=== PATIENT | male | born 1940 | race Caucasian/White ===

== ENCOUNTER 2022-11-02 07:45 | Outpatient (RCR) | payer MEDICARE, BC, SELFPAY | END 2023-01-25 14:43 | disposition home or self-care (01) | PROVIDERS: PCP Family Medicine; Visit Provider Family Medicine | DX: R26.81 Unsteadiness on feet (principal); Z51.89 Encounter for other specified aftercare | CPT/HCPCS: 97110; 97162 ==

== ENCOUNTER 2022-12-01 12:48 | Inpatient (IN) | payer MEDICARE, BC, SELFPAY ==
[2022-12-01] VITALS (11 sets, daily range): BP systolic 115–143; BP diastolic 66–86; PULSE 68–96; RESP 12–18; TEMP 36.4–37; O2SAT 95–100; BMI 21.6; BMI 22.6
--- NOTE | 2022-12-01 13:59 | CRLHL7_ITS ---
For Patients: As a result of the Century Cures Act, medical imaging exams and procedure reports are released immediately into your electronic medical record. You may view this report before your referring provider. If you have questions, please contact your health care provider. Indication: Fall, weakness Comparison: None available. Technique: Multiple sequential axial images from the foramen magnum to the vertex were obtained without IV contrast. Findings: No definite skull fracture. No evidence of mass effect, midline shift, or extra-axial fluid collection. No evidence of space-occupying lesion or intracranial hemorrhage. No evidence of an acute appearing cortical-based area of infarction. Ventricles and sulci are appropriate for patient age. Basal cisterns are patent. Visualized portions of the orbits, paranasal sinuses, and mastoid air cells are unremarkable. Impression: No acute intracranial process. Please note that all CT scans at this facility use dose modulation, iterative reconstruction, and/or weight-based dosing when appropriate to reduce radiation dose to as low as reasonably achievable. Dictated by Demetris Casas MD @ 12/01/2022 2:39:37 PM (Electronically Signed)
--- NOTE | 2022-12-01 14:04 | ED.GENADULT ---
HPI - General Adult General Chief complaint: Weakness Stated complaint: Illness Time Seen by Provider: 12/01/22 12:52 History of Present Illness HPI narrative: This 82-year-old male comes in for evaluation after being found down at home. A good friend and his . By this morning and saw that he was on the floor. He did not have any clothes on. They were able to the help him up and get him dressed. He did have some food and then was brought here for evaluation. The patient lives alone at home and states that things have been going well for him. He does recognize that he has some early stages of dementia. 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. The patient does have some abrasions on his left shoulder and elbow. He also has matting in his left eye. He arrives with normal vital signs but is noted to have an irregular rhythm. EKG does show atrial fibrillation which is new onset for him. There are no specific ST changes. He does not report any chest pain. His rate is controlled. His son has power of director of analytics and lives in [place]. Related Data Home Medications Medication Instructions Recorded Confirmed metformin 500 mg tablet,extended 2,000 mg PO DAILY 12/01/22 12/01/22 release 24 hr sertraline 50 mg tablet 50 mg PO DAILY 12/01/22 12/01/22 trazodone 50 mg tablet 25 mg PO HS 12/01/22 12/01/22 Allergies Allergy/AdvReac Type Severity Reaction Status Date / Time No Known Drug Allergies Allergy Verified 12/01/22 13:05 Review of Systems Status of ROS: Reports: 10 or more systems reviewed and unremarkable except as noted in History and below Narrative: Constitutional: No fevers, no weight gain or loss. Eyes: No discharge. No vision changes. HENT: No congestion, no sore throat, no ear pain. Cardiovascular: No chest pain, no palpitations. Respiratory: No shortness of breath, no wheezes, no cough. Gastrointestinal: No abdominal pain, no vomiting, no diarrhea. Genitourinary: No dysuria, no hematuria. Musculoskeletal: Normal range of motion. Skin: No rashes, no pruritis. Neurological: No dizziness, weakness, sensory change, speech change. Endo/Heme/Allergies: No bruising or bleeding. No polydipsia. Pysch: no suicidality, no anxiety, no insomnia. All other systems reviewed and are negative. Exam Narrative: Exam Narrative: Constitutional: Well-developed, well-nourished, no acute distress. HEENT: Normocephalic, atraumatic. Matting in purulence from the left eye. Neck: Normal range of motion. Nontender. Supple. Heart: Irregular. No murmurs. Normal rate. Intact distal pulses. Lungs: Clear to auscultation. No chest discomfort. No wheezes, rhonchi, or rales. Abdomen: Normal bowel sounds. Nontender. No rebound tenderness. Genitalia: Deferred. Back: No midline tenderness. Normal range of motion. Extremities: Normal range of motion. Erythema on the left shoulder and elbow. There is an abrasion also on the left elbow. Skin: Intact. No rash. Warm. No erythema or pallor. Neurologic: No altered sensation. No weakness. Alert. Psychiatric: No suicidality. No anxiety or depression. No insomnia. Nursing notes and vitals signs are reviewed. Const: Vital Signs, click to edit/add: Vital Signs - 24 hr 12/01/22 13:05 Temperature 97.5 F L Pulse Rate [Right Pulse Oximeter] 73 Respiratory Rate 16 Blood Pressure [Ri ght Upper Arm] 143/86 H Pulse Oximetry 97 Oxygen Delivery Me thod Room Air Course Vital Signs Vital signs: Initial Vital Signs Temperature 97.5 F L 12/01/22 13:05 Temperature Source Temporal Artery Scan 12/01/22 13:05 Pulse Rate 73 12/01/22 13:05 Pulse Rhythm Regular 12/01/22 13:05 Respiratory Rate 16 12/01/22 13:05 Blood Pressure 143/86 H 12/01/22 13:05 Blood Pressure Mean 105 12/01/22 13:05 Blood Pressure Position Sitting 12/01/22 13:05 Pulse Oximetry 97 12/01/22 13:05 Oxygen Delivery Method Room Air 12/01/22 13:05 Vital Signs Temperature 97.5 F L 12/01/22 13:05 Pulse Rate 73 12/01/22 13:05 Respiratory Rate 16 12/01/22 13:05 Blood Pressure 143/86 H 12/01/22 13:05 Pulse Oximetry 97 12/01/22 13:05 Oxygen Delivery Method Room Air 12/01/22 13:05 Temperature 97.5 F L 12/01/22 13:05 Pulse Rate 73 12/01/22 13:05 Respiratory Rate 16 12/01/22 13:05 Blood Pressure 143/86 H 12/01/22 13:05 Pulse Oximetry 97 12/01/22 13:05 Oxygen Delivery Method Room Air 12/01/22 13:05 Medical Decision Making MDM Narrative Medical decision making narrative: This patient comes in for evaluation after being down for an unknown amount of time. His good friend stop by to check on him and noted that he was unclothed and apparently had been down for unknown amount of time. His last time that he was seen was last evening. The patient does not have any complaints. A CT scan of his head returns without any acute findings. Lab results do show a sodium that is a bit low at 126. His creatine kinase is markedly elevated at around 9000. I did speak with the hospitalist network control technician who agrees to his admission Lab Data Labs: Lab Results 12/01/22 12/01/22 Range/Units 14:10 14:30 WBC 8.46 (4.50-11.00) K/uL RBC 3.93 L (4.30-5.90) m/uL Hgb 13.4 L (13.5-17.5) gm/dL Hct 37.2 (37.0-53.0) % MCV 95 (80-100) fL MCH 34 (26-34) pg MCHC 36 (32-36) gm/dL RDW Coeff of Patricia 12.3 (11.5-15.5) % Plt Count 203 (140-440) K/uL Neut % (Auto) 88.1 H (42.0-72.0) % Lymph % (Auto) 5.3 L (20-44) % [place] % (Auto) 6.3 (0.0-11.0) % Eos % (Auto) 0.0 (0.0-7.0) % Baso % (Auto) 0.1 (0.0-3.0) % Neut # (Auto) 7.50 H (1.7-7.0) K/uL Lymph # (Auto) 0.40 L (0.90-2.90) K/uL [place] # (Auto) 0.50 (0.00-0.90) K/UL Eos # (Auto) 0.00 (0.00-0.50) K/uL Baso # (Auto) 0.01 (0.00-0.30) K/uL Sodium 126 L (135-149) mmol/L Potassium 3.8 (3.6-5.1) mmol/L Chloride 92 L (96-114) mmol/L Carbon Dioxide 28 (20-32) mmol/L BUN 25 (7-30) mg/dL Creatinine 0.7 (0.5-1.5) mg/dL Estimated Creat Clear 47.50 Estimated GFR 92 ml/min Glucose 163 H (60-115) mg/dL Calcium 8.8 (8.4-10.6) mg/dL Total Bilirubin 1.4 (0.1-1.5) mg/dL Direct Bilirubin 0.0 (0.0-0.5) mg/dL AST 181 H (12-35) U/L ALT 65 H (4-50) U/L Alkaline Phosphatase 51 (40-150) U/L Total Creatine Kinase 9036 H (54-186) U/L Total Protein 6.3 (6.0-8.3) g/dL Albumin 3.9 (3.3-5.0) g/dL SARS-CoV-2 (PCR) Negative SARS-CoV-2 (Negative) POC Troponin I 0.02 (0.01-0.04) ng/ml Imaging Data CT scan - head: Radiologist's impression: No acute intracranial process. ECG Data Attestation: I personally reviewed and interpreted this ECG as follows: Interpretation: Atrial fibrillation. Rate is 72 beats per minute. There are no specific ST or T-wave abnormalities. Discharge Plan Discharge Clinical Impression: Conjunctivitis, Rhabdomyolysis, Acute hyponatremia Patient Disposition: Admitted As Inpatient Condition: Unchanged Prescriptions: No Action trazodone 50 mg tablet 25 mg PO HS metformin 500 mg tablet extended release 24 hr 2,000 mg PO DAILY sertraline 50 mg tablet 50 mg PO DAILY Follow Up/Referrals: Jairo Richardson MD [Primary Care Provider] -
[2022-12-01 14:23] LABS: Basophils Absolute Auto 0.01 K/uL (0.00-0.30); Basophils Percent Auto 0.1 % (0.0-3.0); Hematocrit 37.2 % (37.0-53.0); Hemoglobin* 13.4 gm/dL (13.5-17.5); Immature Granulocytes Abs Auto 0.02 K/uL (0.00-0.30); Immature Granulocytes Pct Auto 0.2 %; Lymphocytes Percent Auto 5.3 % (20-44); Mean Corpuscular HGB Conc 36 gm/dL (32-36); Mean Corpuscular Hemoglobin 34 pg (26-34); Mean Corpuscular Volume 95 fL (80-100); Monocytes Percent Auto 6.3 % (0.0-11.0); Neutrophils Percent Auto 88.1 % (42.0-72.0); Platelet Count* 203 K/uL (140-440); RDW Coefficient of Variation % 12.3 % (11.5-15.5); Red Blood Count 3.93 m/uL (4.30-5.90); Slide Review Reflex No; White Blood Count* 8.46 K/uL (4.50-11.00)
[2022-12-01 14:26] LABS: Troponin, Point-of-Care* 0.02 ng/ml (0.01-0.04)
[2022-12-01 14:36] LABS: Albumin* 3.9 g/dL (3.3-5.0); Chloride* 92 mmol/L (96-114)
[2022-12-01 14:37] LABS: Potassium* 3.8 mmol/L (3.6-5.1); Sodium* 126 mmol/L (135-149)
[2022-12-01 14:39] LABS: Aspartate Amino Transferase* 181 U/L (12-35); Bilirubin Total* 1.4 mg/dL (0.1-1.5); Blood Urea Nitrogen* 25 mg/dL (7-30); Carbon Dioxide* 28 mmol/L (20-32); Creatinine* 0.7 mg/dL (0.5-1.5); Estimated Glomerular Filt Rate 92 ml/min; Glucose* 163 mg/dL (60-115); Total Protein* 6.3 g/dL (6.0-8.3)
[2022-12-01 14:40] LABS: Alanine Aminotransferase* 65 U/L (4-50); Alkaline Phosphatase* 51 U/L (40-150); Calcium* 8.8 mg/dL (8.4-10.6)
[2022-12-01 15:16] LABS: SARS PCR* Negative SARS-CoV-2 (Negative)
[2022-12-01 15:18] LABS: Creatine Kinase* 9036 U/L (54-186)
[2022-12-01] MEDS: 0.9 % SODIUM CHLORIDE 1000 ml 1,000 ML IV (16:10)
--- NOTE | 2022-12-01 16:43 | PM.IMHP1 ---
Hospitalist- H&P: HPI History of Present Illness Date Seen: 12/01/22 Chief complaint: Illness Narrative: Steve Titus is a 82 year old male with limited known pmhx including hx of depression, Type II DM who is presenting for evaluation of confusion and fall. The patient is a resident of [facility]. Per report he has had recent falls. He was found today by family friend on the floor and he was brought in the ED for evaluation. In the ED the patient was noted to be in Afib; presumed new onset. CT head and cervical spine no acute findings. Notable labs included normal WBC, sodium 126, and CK 9036. He was given IVF and admitted for evaluation. I spoke with the patient's son Domo. He lives in [place]. He would like daily updates. He confirmed his father is DNR and understands he likely will need NH placement. ct head No acute intracranial process. Review of Systems Status of ROS: Reports: unobtainable due to medical condition [facility] Social History What is your current living situation: I presently have a place to live Problems where you live: no known problems Problems where you live details: none. In the past 12 months, utilities in danger of being shut off: no In the past 12 mos, have been you worried that your food would run out before you had money to buy more?: never true In the past 12 mos, the food you bought just didn't last and you didn't have money to buy more?: never true Highest level of school completed/degree received: Doctoral degree Smoking Status: Never smoker Second hand tobacco smoke exposure: No How often do you have a drink containing alcohol: 2-3 times a week Alcohol type: wine How many standard drinks containing alcohol do you have on a typical day: 1 or 2 How often do you have six or more drinks on one occasion: Never AUDIT-C Alcohol total score: 3 Non-prescribed substance use: denies use Caffeine: Yes (coffee 1-3x per week) How often does anyone, including family, friends and others, physically hurt you: How often does anyone, including family, friends and others, insult or talk down to you: How often does anyone, including family, friends and others, threaten you with harm: How often does anyone, including family, friends and others, scream or curse at you: service: No Meds Home Medications and Allergies Home Medications Medication Instructions Recorded Confirmed Type metformin 500 mg tablet,extended 2,000 mg PO DAILY 12/01/22 12/01/22 History release 24 hr sertraline 50 mg tablet 50 mg PO DAILY 12/01/22 12/01/22 History trazodone 50 mg tablet 25 mg PO HS 12/01/22 12/01/22 History Allergies Allergy/AdvReac Type Severity Reaction Status Date / Time No Known Drug Allergies Allergy Verified 12/01/22 13:05 Exam Narrative: Exam Narrative: Gen: no acute distress HEENT: EOMI mmm Neck: Supple CV: IRIR normal s1 s2 Lungs: CTAB Abd: Soft,nt, nd Neuro: Alert, oriented X1 CN grossly intact Psych: appropriate affect MSK: age appropriate muscle mass Skin: multiple abrasions on forearms forehead Const: Vital Signs, click to edit/add: Vital Signs - 24 hr 12/01/22 13:05 12/01/22 15:22 12/01/22 15:30 Temperature 97.5 F L Pulse Rate 71 78 Pulse Rate [Right Pulse Oximeter] 73 Respiratory Rate 16 Blood Pressure Blood Pressure [Ri ght Upper Arm] 143/86 H Pulse Oximetry 97 97 97 Oxygen Delivery Me thod Room Air 12/01/22 15:32 12/01/22 15:45 12/01/22 16:00 Temperature Pulse Rate 76 84 84 Pulse Rate [Right Pulse Oximeter] Respiratory Rate 18 Blood Pressure 115/66 Blood Pressure [Ri ght Upper Arm] Pulse Oximetry 97 98 98 Oxygen Delivery Me thod 12/01/22 16:02 12/01/22 16:15 Temperature Pulse Rate 93 96 Pulse Rate [Right Pulse Oximeter] Respiratory Rate 16 Blood Pressure 124/73 Blood Pressure [Ri ght Upper Arm] Pulse Oximetry 95 97 Oxygen Delivery Me thod Hospitalist - H&P: Result Labs Labs: Short CBC 12/01/22 Range/Units 14:10 WBC 8.46 (4.50-11.00) K/uL Hgb 13.4 L (13.5-17.5) gm/dL Hct 37.2 (37.0-53.0) % Plt Count 203 (140-440) K/uL [facility] 12/01/22 14:10 Sodium 126 L Potassium 3.8 Chloride 92 L Carbon Dioxide 28 BUN 25 Creatinine 0.7 Glucose 163 H Calcium 8.8 Cardiac Enzymes 12/01/22 Range/Units 14:10 Total Creatine Kinase 9036 H (54-186) U/L Liver Function 12/01/22 Range/Units 14:10 Total Bilirubin 1.4 (0.1-1.5) mg/dL Direct Bilirubin 0.0 (0.0-0.5) mg/dL AST 181 H (12-35) U/L ALT 65 H (4-50) U/L Alkaline Phosphatase 51 (40-150) U/L Albumin 3.9 (3.3-5.0) g/dL Assessment and Plan Assessment and plan (1) Acute hyponatremia: Status: Acute (2) Rhabdomyolysis: Status: Acute (3) Conjunctivitis: Status: Acute (4) Fall: Status: Acute (5) Atrial fibrillation with rapid ventricular response: Status: Acute Plan Steve Titus is a 82 year old male with limited known pmhx including hx of depression, Type II DM who is presenting for evaluation of confusion and fall. In the ED the patient was noted to be in Afib; presumed new onset. CT head and cervical spine no acute findings. Notable labs included normal WBC, sodium 126, and CK 9036. He was given IVF and admitted for evaluation. I spoke with the patient's son Domo. He lives in [place]. He would like daily updates. He confirmed his father is DNR and understands he likely will need NH placement. 1. Acute Hyponatremia and metabolic encephalopathy 2. new onset atrial fibrillation with RVR 3. Hx of Depression 4. Hx of Type II DM 5. Recurrent fall 6. Acute Rhabdomyolysis 7. 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
[2022-12-01] MEDS: METOPROLOL TARTRATE 1 MG/ML inj 5 MG IVP (18:12)
[2022-12-01 18:55] LABS: Chloride* 92 mmol/L (96-114); Sodium* 127 mmol/L (135-149)
[2022-12-01 18:56] LABS: Potassium* 3.8 mmol/L (3.6-5.1)
[2022-12-01 18:58] LABS: Creatinine* 0.6 mg/dL (0.5-1.5); Est. Creatinine Clearance* 49.54; Estimated Glomerular Filt Rate 96 ml/min
[2022-12-01 18:59] LABS: Blood Urea Nitrogen* 24 mg/dL (7-30); Calcium* 8.8 mg/dL (8.4-10.6); Carbon Dioxide* 28 mmol/L (20-32); Glucose* 146 mg/dL (60-115); Magnesium* 1.8 mg/dL (1.5-2.6)
[2022-12-01] MEDS: METOPROLOL TARTRATE 50 MG TABLET PO (20:01)
[2022-12-01] MEDS: POTASSIUM CHLORIDE 10 MEQ CAPSULE ER 20 MEQ PO (20:02)
[2022-12-01] MEDS: APIXABAN 5 MG TABLET PO (20:43)
[2022-12-01] MEDS: SODIUM CHLORIDE 0.9 % (FLUSH) 10 ML SYRINGE 5 ML IVF (20:45)
[2022-12-01] MEDS: 0.9 % SODIUM CHLORIDE 1000 ml 1,000 ML 125 ML IV (23:53)
[2022-12-01 23:58] LABS: Sodium* 125 mmol/L (135-149)
[2022-12-02] VITALS (13 sets, daily range): BP systolic 96–134; BP diastolic 61–81; PULSE 57–164; RESP 12–18; TEMP 36.1–36.9; O2SAT 96–100
[2022-12-02 03:50] LABS: Appearance Urine Clear (Clear); Bilirubin Urine 1+ (Negative); Blood Urine Trace-lysed (Negative); Color Urine Amber (Yellow); Glucose Urine Negative (Negative); Ketones Urine 2+ (Negative); Leukocyte Esterase Urine Negative (Negative); Nitrite Urine Negative (Negative); Protein Urine 2+ (Negative); Specific Gravity Urine >= 1.030 (1.000-1.030); WBC Urine 0-2 (0-5)
[2022-12-02 03:51] LABS: Mucus Urine Few
[2022-12-02] MEDS: LACTATED RINGERS 1000 ML 1,000 ML 75 ML IV (05:15)
[2022-12-02] MEDS: ALBUMIN HUMAN 25% 25 GM/100 ML VIAL IVPB (05:32)
--- NOTE | 2022-12-02 06:07 | PC.NURSE ---
Patient is an 82 yo M here for confusion and falls as well as hyponatremia. His vs are very good, he is on RA, regular diet, SBA w/ GB and FWW. Per provider he was changed from NS to LR @ 75ml/hr, he also has one time dose of albumin running this morning. At the start of the shift the patient was very confused and had a really difficult time following instructions and being redirected. The first time on this shift that he was brought to the BR, he had an unsteady gait and a tendency to sway on his feet. However, later that evening he ambulated twice around the unit as SBA with FWW with no issues. It took constant redirection in order to get him to understand how to sit on the toilet. According to the nurse on dayshift he had alot of difficulty feeding himself and as proof his gown as well as his bedding was covered in chocolate ice cream. Per the lab draw several hours ago he remains hyponatremic. He is alert to self only.
[2022-12-02 06:48] LABS: Basophils Absolute Auto 0.03 K/uL (0.00-0.30); Basophils Percent Auto 0.4 % (0.0-3.0); Eosinophils Absolute Auto 0.07 K/uL (0.00-0.50); Hematocrit 35.4 % (37.0-53.0); Hemoglobin* 12.3 gm/dL (13.5-17.5); Immature Granulocytes Abs Auto 0.01 K/uL (0.00-0.30); Immature Granulocytes Pct Auto 0.1 %; Lymphocytes Percent Auto 7.8 % (20-44); Mean Corpuscular HGB Conc 35 gm/dL (32-36); Mean Corpuscular Hemoglobin 34 pg (26-34); Mean Corpuscular Volume 97 fL (80-100); Monocytes Percent Auto 7.6 % (0.0-11.0); Neutrophils Percent Auto 83.1 % (42.0-72.0); Platelet Count* 199 K/uL (140-440); RDW Coefficient of Variation % 12.4 % (11.5-15.5); Red Blood Count 3.67 m/uL (4.30-5.90); White Blood Count* 6.69 K/uL (4.50-11.00)
[2022-12-02 06:49] LABS: Slide Review Reflex No
[2022-12-02 07:06] LABS: Albumin* 3.5 g/dL (3.3-5.0); Chloride* 95 mmol/L (96-114)
[2022-12-02 07:07] LABS: Potassium* 3.9 mmol/L (3.6-5.1); Sodium* 128 mmol/L (135-149)
[2022-12-02 07:09] LABS: Alkaline Phosphatase* 43 U/L (40-150); Aspartate Amino Transferase* 129 U/L (12-35); Blood Urea Nitrogen* 23 mg/dL (7-30); Carbon Dioxide* 26 mmol/L (20-32); Creatinine* 0.7 mg/dL (0.5-1.5); Est. Creatinine Clearance* 49.54; Estimated Glomerular Filt Rate 92 ml/min; Glucose* 123 mg/dL (60-115); Total Protein* 5.7 g/dL (6.0-8.3)
[2022-12-02 07:10] LABS: Alanine Aminotransferase* 61 U/L (4-50); Calcium* 8.4 mg/dL (8.4-10.6); Magnesium* 1.8 mg/dL (1.5-2.6)
[2022-12-02 07:43] LABS: Creatine Kinase* 4925 U/L (54-186)
[2022-12-02] MEDS: METOPROLOL TARTRATE 50 MG TABLET PO ×2 (08:37→21:56)
[2022-12-02] MEDS: APIXABAN 5 MG TABLET PO ×2 (08:37→21:56)
[2022-12-02] MEDS: METOPROLOL TARTRATE 1 MG/ML inj 5 MG IVP (08:37)
[2022-12-02] MEDS: MAGNESIUM OXIDE 400 MG TABLET PO ×2 (08:37→21:56)
--- NOTE | 2022-12-02 14:23 | ONC.NURNOTE ---
0820 pt heart rate went from NSR to Atrial fib. 144 heart rate. pt sitting in a chair having breakfast. pt denies pain, discomfort, sob or rapid heart rate. BP 96/74. resp 16. Dr. Li notified. Metoprolol 5mg ivp and metoprolol 50mg po. with teaching. 0852 pts heart rate went from atrial fib to NSR . bp 107/62. heart rate 80. pt able to get up and walk win room with PT. used the restroom. alarms on for pt is unsteady. pt appears more confused/forgetful today per Pinky RN> blood sugar this am 123. no ss coverage given. voided in good amt.
[2022-12-02 14:55] LABS: Sodium* 128 mmol/L (135-149)
--- NOTE | 2022-12-02 16:10 | P.IMPN_ITS ---
Progress Note: A&P Assessment and plan (1) Fall: Status: Acute (2) Acute hyponatremia: Problem details: -goal sodium correction 4-6 meq over 24 hours - near goal, increase IVF rate, recheck Status: Acute (3) Rhabdomyolysis: Problem details: - CK improving, but still quite elevated. Cr stable. Continue IVF. Status: Acute (4) Atrial fibrillation with rapid ventricular response: Problem details: - Give IV metoprolol x 1 and start scheduled oral metoprolol for rate control - Eliquis for stroke prophylaxis - ECHO pending, continue tele Status: Acute (5) Encephalopathy: Problem details: Continue to reorient and monitor. No clear signs of infection. Possible metabolic encephalopathy, unclear cause. Status: Acute (6) Elevated LFTs: Problem details: Improving Status: Acute (7) Type 2 diabetes mellitus: Problem details: - Holding metformin due to rhabdomyolysis. Use insulin sliding scale at meals and bedtime. Status: Chronic Plan Continue PT, OT, SW consult, likely needs placement Subjective Time Seen by Provider: 10:19 Date Seen: 12/02/22 Interval history: tSeve remains confused. He is pleasant. No complaints. I called his son, Domo [phone], at 4:25 p.m., and left a message on his voicemail to call back or that we can talk tomorrow. Exam Narrative: Exam Narrative: General: No acute distress. Awake, alert, oriented to self. He asked me where he was and if he was still in [place]. No pallor. No jaundice. Oropharynx: Clear. Mucous membranes moist. Cardiovascular: Irregularly irregular. No murmurs, gallops, or rubs. Respiratory: Clear to auscultation bilaterally. No wheezes or crackles. Abdomen: Bowel sounds present. Soft, nondistended, nontender. Extremities: No pedal edema. Skin: Abrasions on forearms and scalp, hemostatic. Const: Vital Signs, click to edit/add: Vital Signs - 24 hr 12/01/22 16:15 12/01/22 16:31 12/01/22 16:31 Temperature 97.7 F Pulse Rate 96 Pulse Rate [Pulse Oximeter] 87 Respiratory Rate 16 16 Blood Pressure [Le ft Arm] 125/82 Pulse Oximetry 97 97 97 Oxygen Delivery Me thod Room Air Room Air 12/01/22 19:00 12/01/22 20:27 12/02/22 00:02 Temperature 98.6 F Pulse Rate 68 57 L Pulse Rate [Pulse Oximeter] 78 Respiratory Rate 12 Blood Pressure [Le ft Arm] 126/70 Pulse Oximetry 100 Oxygen Delivery Me thod Room Air 12/02/22 00:02 12/02/22 00:02 12/02/22 03:53 Temperature 97.5 F L 98.2 F Pulse Rate Pulse Rate [Pulse Oximeter] 57 L 63 68 Respiratory Rate 12 12 12 Blood Pressure [Le ft Arm] 117/61 134/81 Pulse Oximetry 100 96 Oxygen Delivery Me thod Room Air Room Air 12/02/22 08:20 12/02/22 08:23 12/02/22 08:52 Temperature 97 F L Pulse Rate 164 H 72 Pulse Rate [Pulse Oximeter] 145 H Respiratory Rate 16 Blood Pressure [Le ft Arm] 96/74 Pulse Oximetry 97 Oxygen Delivery Me thod Room Air 12/02/22 09:45 12/02/22 09:45 12/02/22 11:00 Temperature Pulse Rate 80 Pulse Rate [Pulse Oximeter] 80 74 Respiratory Rate 14 Blood Pressure [Le ft Arm] 107/62 Pulse Oximetry Oxygen Delivery Me thod 12/02/22 15:01 Temperature Pulse Rate 65 Pulse Rate [Pulse Oximeter] Respiratory Rate Blood Pressure [Le ft Arm] Pulse Oximetry Oxygen Delivery Me thod Labs Labs: Laboratory Results - last 24 hr 12/01/22 12/01/22 12/02/22 18:24 23:40 01:10 WBC RBC Hgb Hct MCV MCH MCHC RDW Coeff of Patricia Plt Count Neut % (Auto) Lymph % (Auto) [place] % (Auto) Eos % (Auto) Baso % (Auto) Neut # (Auto) Lymph # (Auto) [place] # (Auto) Eos # (Auto) Baso # (Auto) Sodium 127 L 125 L Potassium 3.8 Chloride 92 L Carbon Dioxide 28 BUN 24 Creatinine 0.6 Estimated Creat Clear 49.54 Estimated GFR 96 Glucose 146 H Calcium 8.8 Magnesium 1.8 Total Bilirubin Direct Bilirubin AST ALT Alkaline Phosphatase Total Creatine Kinase Total Protein Albumin TSH Urine Color Radha A Urine Appearance Clear Urine pH 6.0 Ur Specific May >= 1.030 Urine Protein 2+ A Urine Glucose (UA) Negative Urine Ketones 2+ A Urine Blood Trace-lysed A Urine Nitrite Negative Urine Bilirubin 1+ A Urine Urobilinogen 1.0 Ur Leukocyte Esterase Negative Urine RBC 5-10 A Urine WBC 0-2 Ur Squamous Epith Cells None Urine Bacteria None Urine Mucus Few A 12/02/22 12/02/22 05:54 14:32 WBC 6.69 RBC 3.67 L Hgb 12.3 L Hct 35.4 L MCV 97 MCH 34 MCHC 35 RDW Coeff of Patricia 12.4 Plt Count 199 Neut % (Auto) 83.1 H Lymph % (Auto) 7.8 L [place] % (Auto) 7.6 Eos % (Auto) 1.0 Baso % (Auto) 0.4 Neut # (Auto) 5.60 Lymph # (Auto) 0.50 L [place] # (Auto) 0.50 Eos # (Auto) 0.07 Baso # (Auto) 0.03 Sodium 128 L 128 L Potassium 3.9 Chloride 95 L Carbon Dioxide 26 BUN 23 Creatinine 0.7 Estimated Creat Clear 49.54 Estimated GFR 92 Glucose 123 H Calcium 8.4 Magnesium 1.8 Total Bilirubin 1.0 Direct Bilirubin 0.0 AST 129 H ALT 61 H Alkaline Phosphatase 43 Total Creatine Kinase 4925 H Total Protein 5.7 L Albumin 3.5 TSH 2.340 Urine Color Urine Appearance Urine pH Ur Specific [place] Urine Protein Urine Glucose (UA) Urine Ketones Urine Blood Urine Nitrite Urine Bilirubin Urine Urobilinogen Ur Leukocyte Esterase Urine RBC Urine WBC Ur Squamous Epith Cells Urine Bacteria Urine Mucus
[2022-12-02] MEDS: LACTATED RINGERS 1000 ML 1,000 ML 125 ML IV (18:25)
--- NOTE | 2022-12-02 19:29 | PC.NURSE ---
Shift 9090-3024- Patient is very confused this afternoon. He is provided frequent reminders and reassurance. He needs explicit direction for movement, and even so has a hard time understanding directions (going from chair to bed, or to bathroom). He is unsteady. Gait belt, walker and assist of 1-2. Appetite is intact. New IV is initiated to right forearm.
[2022-12-02 20:16] LABS: Sodium* 128 mmol/L (135-149)
[2022-12-02] MEDS: SODIUM CHLORIDE 0.9 % (FLUSH) 10 ML SYRINGE 5 ML IVF (21:57)
[2022-12-03] VITALS (8 sets, daily range): BP systolic 105–138; BP diastolic 66–81; PULSE 61–72; RESP 12–18; TEMP 36.5–37.6; O2SAT 92–99; BMI 22.6
[2022-12-03] MEDS: LACTATED RINGERS 1000 ML 1,000 ML 125 ML IV ×2 (02:39→11:10)
--- NOTE | 2022-12-03 05:47 | PC.NURSE ---
Patient is an 82 yo M here for confusion and falls as well as hyponatremia. His vs are very good, he is on RA, regular diet, SBA w/ GB and FWW. He has LR running at 125 ml/hr. Alyson remains very confused and stood up at the bedside multiple times throughout the night believing he was going on a trip and needed to pack and get his luggage together. His short-term memory is absent and he needed redirection many times through the night about where he was and why he was here. He is doing much better standing at the bedside this evening to use the urinal (with help) to void. Bed alarms remain on.
[2022-12-03 06:56] LABS: Chloride* 94 mmol/L (96-114); Potassium* 3.5 mmol/L (3.6-5.1); Sodium* 128 mmol/L (135-149)
[2022-12-03 06:59] LABS: Carbon Dioxide* 29 mmol/L (20-32); Creatinine* 0.6 mg/dL (0.5-1.5); Est. Creatinine Clearance* 49.54; Estimated Glomerular Filt Rate 96 ml/min
[2022-12-03 07:00] LABS: Blood Urea Nitrogen* 14 mg/dL (7-30); Calcium* 8.7 mg/dL (8.4-10.6); Glucose* 146 mg/dL (60-115)
[2022-12-03 07:06] LABS: Creatine Kinase* 2426 U/L (54-186)
[2022-12-03] MEDS: METOPROLOL TARTRATE 50 MG TABLET PO ×2 (08:38→21:05)
[2022-12-03] MEDS: APIXABAN 5 MG TABLET PO ×2 (08:38→21:05)
[2022-12-03] MEDS: MAGNESIUM OXIDE 400 MG TABLET PO ×2 (08:38→21:05)
[2022-12-03] MEDS: SODIUM CHLORIDE 0.9 % (FLUSH) 10 ML SYRINGE 5 ML IVF ×2 (11:11→21:05)
--- NOTE | 2022-12-03 14:57 | PC.SOCIAL ---
Addendum entered by MARGARITO Neil 12/03/22 16:02: Received a phone call from Benita in admissions at [facility]. Benita informs that [facility] will accept pt for admission when pt is medically cleared for discharge. Provided update to charge nurse. Phone call to pt's son, Domo, and provided update. Domo states he will likely be able to get transportation for pt upon discharge. Will follow up with pt's son when pt is medically cleared for discharge. Social work will follow up as necessary. Original Note: Discharge planning- Phone call to pt's son, Domo, to discuss discharge planning. Discussed therapy recommendations of short-term rehab. Domo would like him in [place], if possible. Regarding transportation to SNF, Domo will ask a friend to transport. Provided social work phone number. Will keep pt's son updated. Phone call to Benita in admissions at [facility]. Benita informs that [facility] has an opening. Faxed referral to [facility] at [phone]. Social work will follow up as necessary.
--- NOTE | 2022-12-03 15:05 | PM.IMPN1 ---
Progress Note: A&P Assessment and plan (1) Fall: Problem details: - PT and OT, will need rehab for gait and balance issues Status: Acute (2) Acute hyponatremia: Problem details: - goal sodium correction 4-6 meq over 24 hours - Cause unclear, FENA labs pending. Suspect SSRI effect of sertraline and trazadone contributing to this as well as dehydration. - near goal, increased IVF rate did not improve sodium. Start oral free water (fluid) restriction. Monitor. Status: Acute (3) Rhabdomyolysis: Problem details: - CK improving. Cr stable. Continue IVF. Status: Acute (4) Atrial fibrillation with rapid ventricular response: Problem details: - continue Eliquis for stroke prophylaxis - rate is well controlled now on metoprolol 12/02/2022 echocardiogram: Technically limited exam. Normal LV size, borderline wall thickness, normal global systolic function with an estimated EF of 60-65%. Right ventricular cavity size is mildly enlarged, global systolic RV function is normal. The aortic valve is sclerotic, no stenosis and no regurgitation. The mitral valve is normal, mild mitral regurgitation. Tricuspid regurgitation is mild for regurgitation, the estimated right ventricular systolic pressure is 31 mm Hg plus RAP. The inferior vena cava is dilated, respiratory size variation is less than 50%. Status: Acute (5) Encephalopathy: Problem details: Continue to reorient and monitor. No clear signs of infection. Probable metabolic encephalopathy, unclear cause. Status: Acute (6) Elevated LFTs: Problem details: Improving Status: Acute (7) Type 2 diabetes mellitus: Problem details: - Holding metformin due to rhabdomyolysis. Use insulin sliding scale at meals and bedtime. Status: Chronic Plan Continue PT, OT, SW consult, needs placement Subjective Time Seen by Provider: 07:27 Date Seen: 12/03/22 Interval history: Steve has no complaints. He feels a little less confused today. I spoke with his son, Domo, over the phone this afternoon to give him an update. Exam Narrative: Exam Narrative: General: No acute distress. Awake, alert, oriented to self and place. Tangential thinking. Told me he was in [place] and went on to tell me where [place] was in relation to other cities and that it [place] town, then talking about the choir at [place], etc. Oropharynx: Clear. Mucous membranes moist. Cardiovascular: Irregularly irregular. No murmurs, gallops, or rubs. Respiratory: Clear to auscultation bilaterally. No wheezes or crackles. Abdomen: Bowel sounds present. Soft, nondistended, nontender. Skin: Abrasions on forearms and scalp, hemostatic. Const: Vital Signs, click to edit/add: Vital Signs - 24 hr 12/02/22 15:45 12/02/22 19:00 12/02/22 20:21 Temperature 97.6 F 97.5 F L Pulse Rate 89 Pulse Rate [Pulse Oximeter] 74 67 Respiratory Rate 18 12 Blood Pressure [Le ft Arm] 126/70 122/80 Pulse Oximetry 97 100 Oxygen Delivery Ar thod Room Air Room Air 12/02/22 22:17 12/02/22 22:17 12/02/22 23:31 Temperature 98.4 F Pulse Rate 66 Pulse Rate [Pulse Oximeter] 66 63 Respiratory Rate 12 12 Blood Pressure [Le ft Arm] 121/72 Pulse Oximetry 100 Oxygen Delivery Ar thod Room Air 12/03/22 02:47 12/03/22 07:00 12/03/22 07:00 Temperature 98.3 F Pulse Rate Pulse Rate [Pulse Oximeter] 61 62 62 Respiratory Rate 12 16 16 Blood Pressure [Le ft Arm] 138/77 115/68 Pulse Oximetry 96 98 [facility] Room Air 12/03/22 07:00 12/03/22 11:00 Temperature 98.7 F Pulse Rate 64 Pulse Rate [Pulse Oximeter] 67 Respiratory Rate 16 Blood Pressure [Le ft Arm] 121/66 Pulse Oximetry 98 Oxygen Delivery Ar thod Room Air Labs Labs: Laboratory Results - last 24 hr 12/02/22 12/02/22 12/03/22 14:32 19:54 06:12 Sodium 128 L 128 L 128 L Potassium 3.5 L Chloride 94 L Carbon Dioxide 29 BUN 14 Creatinine 0.6 Estimated Creat Clear 49.54 Estimated GFR 96 Glucose 146 H Calcium 8.7 Total Creatine Kinase 2426 H
--- NOTE | 2022-12-03 15:19 | PC.NURSE ---
End of shift: Patient is alert and oriented x3, slightly confused at times but easily remembers when reminded, he is also easily redirected. He needs explicit direction for movement per Physical Therapy and can follow well. Patient is steady with Gait belt, walker and assist of 1. IV in right forearm is patent, LR running at 125ml/hr. Patient denies N/V/SOB or pain. Patient is on a 1500 fluid restriction d/t low Na. Metformin is on hold per d/t Beth. Housing Development Specialist informed patient of this and he was agreeable to using Novolog sliding scale. BG to was 146, 228. Administered sliding scale per protocol. see eMAR.
[2022-12-03] MEDS: 0.9 % SODIUM CHLORIDE 1000 ml 1,000 ML 125 ML IV ×2 (15:47→23:20)
[2022-12-03] MEDS: POTASSIUM BICARB 25 MEQ EFFERVESCENT TAB PO (16:20)
--- NOTE | 2022-12-03 18:10 | PC.NURSE ---
Pt calm and cooperative during shift. Pt assist of one with walker. Pt has had no complaints of pain during shift (15-19). Pt is confused at times redirected easily. Pt attempts to self transfer and walk alone in room.?
[2022-12-04 03:00] VITALS: BP 139/88; PULSE 66; RESP 16; TEMP 37.2; O2SAT 93
--- NOTE | 2022-12-04 05:26 | PC.NURSE ---
SHIFT NOTE : Pt oriented to self, disoriented with time/place/situation, easily reoriented but quickly forgets. Up 1 assist, unsteady on his feet, at times tries to pick his walker up and walk with it. VSS on RA. Tele reads a-fib. Denies pain, SOB, CP, and N/V. Pt urinated 1650cc and was also incontinent of large amounts of urine 3 times overnight requiring linen changes. Pt resting in bed with fall precautions in place.
[2022-12-04 06:59] LABS: Albumin* 3.6 g/dL (3.3-5.0); Chloride* 94 mmol/L (96-114)
[2022-12-04 07:00] VITALS: BP 129/75; PULSE 68; RESP 18; TEMP 36.6; O2SAT 95
[2022-12-04 07:00] LABS: Potassium* 3.8 mmol/L (3.6-5.1); Sodium* 130 mmol/L (135-149)
[2022-12-04 07:02] LABS: Alkaline Phosphatase* 51 U/L (40-150); Aspartate Amino Transferase* 82 U/L (12-35); Bilirubin Total* 0.9 mg/dL (0.1-1.5); Blood Urea Nitrogen* 13 mg/dL (7-30); Carbon Dioxide* 31 mmol/L (20-32); Creatine Kinase* 1175 U/L (54-186); Creatinine* 0.8 mg/dL (0.5-1.5); Est. Creatinine Clearance* 49.54; Estimated Glomerular Filt Rate 88 ml/min; Glucose* 159 mg/dL (60-115); Total Protein* 5.8 g/dL (6.0-8.3)
[2022-12-04 07:03] LABS: Alanine Aminotransferase* 69 U/L (4-50); Calcium* 8.7 mg/dL (8.4-10.6)
[2022-12-04] MEDS: APIXABAN 5 MG TABLET PO ×2 (09:15→21:36)
[2022-12-04] MEDS: MAGNESIUM OXIDE 400 MG TABLET PO ×2 (09:16→21:37)
[2022-12-04] MEDS: METOPROLOL TARTRATE 50 MG TABLET PO ×2 (09:16→21:36)
[2022-12-04] MEDS: SODIUM CHLORIDE 0.9 % (FLUSH) 10 ML SYRINGE 5 ML IVF ×2 (09:16→21:37)
--- NOTE | 2022-12-04 10:49 | PC.SOCIAL ---
Addendum entered by MARGARITO Neil 12/05/22 09:28: Steve & Batsheva will pick pt up upon discharge from [facility] on 12/05/22 at 10:30 am. Provided update to Benita at [facility]. Addendum entered by MARGARITO Neil 12/04/22 13:57: Phone call to pt's son, Domo, to discuss discharge and transportation. Domo will be coming to town to settle pt in at [facility], however, he will not be in town until after pt's discharges from [facility]. Provided phone number for [facility] admission coordinator to Domo. Domo informs that family friends Raisa will provide transportation to [facility] upon discharge. Batsheva's phone number is [phone]. Called Batsheva and left a voicemail to get a time that would work for transport. Pt's son, Domo, will also follow up and call social work phone number and leave a message. Provided update to charge nurse. Addendum entered by MARGARITO Neil 12/04/22 11:02: Provided update via e-mail to Shiloh Melendez at [facility] that pt would be going for short-term rehab stay at [facility]. Original Note: Discharge planning- Phone call to Benita in Admissions at [facility]. Left voicemail informing that pt will be ready for discharge tomorrow. Completed Preadmission screening. Confirmation# [id number]. Faxed copy of PAS to [facility]. Social work will follow up as necessary.
[2022-12-04 11:00] VITALS: BP 107/65; PULSE 71; RESP 18; TEMP 36.4; O2SAT 97
--- NOTE | 2022-12-04 12:35 | P.DS_ITS ---
DS: Providers Provider Time Seen by Provider: 12:36 Date Seen: 12/04/22 Date of admission: 12/01/22 16:38 Primary care physician: Jairo Richardson MD Admitting Clinician: Addy Taylor MD Consults: 12/01/22 16:38 Consult to Physical Therapy [CONS] Routine Comment: Reason(s) for PT Consult:: Balance Assessment Any Restrictions?:: No Restrictions Consult to [facility] [CONS] Routine Comment: Reason for Consult:: Social Service Consult 12/01/22 16:40 Consult to Occupational Therapy [CONS] Routine Comment: Reason(s) for OT Consult:: Evaluate and Treat Any Restrictions?:: No Restrictions 12/01/22 17:56 Consult to Occupational Therapy [CONS] Routine Comment: Reason(s) for OT Consult:: Difficulty Managing ADLs Any Restrictions?:: No Restrictions Consult to Physical Therapy [CONS] Routine Comment: Reason(s) for PT Consult:: Recent Falls Any Restrictions?:: No Restrictions Attending Physician on discharge: Amber Li MD Date of Discharge: 12/05/22 DS: Diagnosis Discharge Diagnosis (1) Rhabdomyolysis: Status: Resolved Problem details: - CK improving. Cr stable. IVF discontinued. (2) Fall: Status: Inactive Problem details: - PT and OT, rehab for gait and balance issues (3) Acute hyponatremia: Status: Acute Problem details: - Cause unclear, FENA labs pending. Suspect SSRI effect of sertraline and trazadone contributing to this as well as dehydration. - Continue oral free water (fluid) restriction. (4) Encephalopathy: Status: Resolved Problem details: - 12/04 Much improved. Patient's son spoke with him over the phone and notes that patient is better than he was even 1.5 weeks ago. (5) Atrial fibrillation with rapid ventricular response: Status: Acute Problem details: - continue Eliquis for stroke prophylaxis - rate is well controlled on metoprolol - continue as outpatient 12/02/2022 echocardiogram: Technically limited exam. Normal LV size, borderline wall thickness, normal global systolic function with an estimated EF of 60-65%. Right ventricular cavity size is mildly enlarged, global systolic RV function is normal. The aortic valve is sclerotic, no stenosis and no regurgitation. The mitral valve is normal, mild mitral regurgitation. Tricuspid regurgitation is mild for regurgitation, the estimated right ventricular systolic pressure is 31 mm Hg plus RAP. The inferior vena cava is dilated, respiratory size variation is less than 50%. (6) Type 2 diabetes mellitus: Status: Chronic Problem details: - Holding metformin due to rhabdomyolysis. Check CK and Cr in am and anticipate restarting metformin at that time. Use insulin sliding scale at meals and bedtime until back on metformin. (7) Elevated LFTs: Status: Acute Problem details: Only AST and ALT elevated, suspect muscular in origin from rhabdo as opposed to liver origin. Improving. DS: Summary Hospital Course Hospital Course: This is an 82-year-old male who has been living independently and recently moved into independent living at [facility] who was found by a friend on the floor. He has had some known recent falls as well. Upon presentation he was in atrial fibrillation, which is a new finding. CT head and cervical spine were unremarkable. White count was within normal limits, but sodium was 126 and CK elevated in the 9000 range. He was admitted with IV fluids and a conversation took place with his son who lives in [place]. He had labs drawn for a FENA, but several of these are still pending, so cause of hyponatremia is unclear, but I suspect it is at least partially related to sertraline and trazodone use as well as dehydration. He is being treated for atrial fibrillation with Eliquis and metoprolol. Rate is controlled. Echocardiogram was obtained. Patient was not encephalopathic upon admission, but has cleared. He likely has underlying baseline dementia. He has type 2 diabetes mellitus for which metformin was held during this hospitalization but can be restarted upon discharge. He is discharged to rehab for gait and balance issues. Please see diagnoses above for further details. I spoke with the patient's son, Jeremiah [phone], on 12/04/2022 to give him an update. His questions were answered. Time Spent with Patient Time attestation: Total time spent providing and/or coordinating discharge services: Exam 2 Narrative: Exam Narrative: General: No acute distress. Awake, alert, oriented to self, place and was off by a day for the day of the week. Clearer mentation today. He remembered who I was. Cardiovascular: Irregularly irregular. No murmurs, gallops, or rubs. Respiratory: Clear to auscultation bilaterally. No wheezes or crackles. Const: Vital Signs, click to edit/add: Vital Signs - 24 hr 12/03/22 15:20 12/03/22 15:30 12/03/22 19:00 Temperature 97.7 F 99.6 F Pulse Rate 64 Pulse Rate [Pulse Oximeter] 65 70 Respiratory Rate 16 16 Blood Pressure [Le ft Arm] 136/78 105/66 Pulse Oximetry 99 96 Oxygen Delivery Me thod Room Air Room Air 12/03/22 20:00 12/03/22 23:00 12/03/22 23:00 Temperature 99 F Pulse Rate 61 61 Pulse Rate [Pulse Oximeter] 72 Respiratory Rate 18 Blood Pressure [Le ft Arm] 135/81 Pulse Oximetry 92 Oxygen Delivery Me thod Room Air 12/04/22 03:00 Temperature 98.9 F Pulse Rate Pulse Rate [Pulse Oximeter] 66 Respiratory Rate 16 Blood Pressure [Le ft Arm] 139/88 Pulse Oximetry 93 Oxygen Delivery Me thod Room Air DS: Data Data Completed and Pending Completed studies during hospitalization: 12/01/2022 12:56 p.m. EKG: Atrial fibrillation 72 beats per minute, nonspecific ST abnormality. 12/01/2022 5:09 p.m. EKG: Atrial fibrillation with rapid ventricular response, 129 beats per minute. Nonspecific ST abnormality. 12/02/2022 echocardiogram: Technically limited exam. Normal LV size, borderline wall thickness, normal global systolic function with an estimated EF of 60-65%. Right ventricular cavity size is mildly enlarged, global systolic RV function is normal. The aortic valve is sclerotic, no stenosis and no regurgitation. Mitral valve is normal, mild mitral regurgitation. Tricuspid regurgitation is mild regurgitation, the estimated right ventricular systolic pressure is 31 mm Hg plus RAP. The inferior vena cava is dilated, respiratory size variation is less than 50%. Ordering Physician: Maynor Vazquez M.D. Date of Service: 12/01/22 Procedure(s): CT head/brain wo con Accession Number(s): [id number] cc: Maynor Vazquez M.D.; Jairo Richardson M.D.~ For Patients:? As a result of the Cures Act, medical imaging exams and procedure reports are released immediately into your electronic medical record.? You may view this report before your referring provider.? If you have questions, please contact your health care provider. Indication: Fall, weakness Comparison: None available. Technique: Multiple sequential axial images from the foramen magnum to the vertex were obtained without IV contrast. Findings: No definite skull fracture. No evidence of mass effect, midline shift, or extra-axial fluid collection. No evidence of space-occupying lesion or intracranial hemorrhage. No evidence of an acute appearing cortical-based area of infarction. Ventricles and sulci are appropriate for patient age. Basal cisterns are patent.? Visualized portions of the orbits, paranasal sinuses, and mastoid air cells are unremarkable. Impression: No acute intracranial process. Please note that all CT scans at this facility use dose modulation, iterative reconstruction, and/or weight-based dosing when appropriate to reduce radiation dose to as low as reasonably achievable. Dictated by Demetris Casas MD @ 12/01/2022 2:39:37 PM (Electronically Signed) Labs on day of discharge: Labs from last 24 hours 12/04/22 05:50 Sodium 130 L Potassium 3.8 Chloride 94 L Carbon Dioxide 31 BUN 13 Creatinine 0.8 Estimated Creat Clear 49.54 Estimated GFR 88 Glucose 159 H Calcium 8.7 Total Bilirubin 0.9 AST 82 H ALT 69 H Alkaline Phosphatase 51 Total Creatine Kinase 1175 H Total Protein 5.8 L Albumin 3.6 Discharge Plan Discharge Disposition: [facility] Discharge Location: [facility] Date of Admission: 12/01/22 16:38 Attending Provider on Discharge: Amber Li Consulting Providers: Amber Li Stephanie L Primary Care Provider: Jairo Richardson Condition: Unchanged Discharge Medications: New metoprolol tartrate 50 mg Tablet 50 mg PO BID Qty: 60 0RF Eliquis 5 mg Tablet 5 mg PO BID Qty: 60 0RF sodium chloride 1,000 mg tablet,soluble 1,000 mg PO BID PRN (Reason: electrolyte replenishment) Qty: 60 0RF Continued trazodone 50 mg tablet 25 mg PO HS metformin 500 mg tablet extended release 24 hr 2,000 mg PO DAILY Discontinued sertraline 50 mg tablet 50 mg PO DAILY Discharge Orders: Discharge Order (Routine); Ordered 12/05/22 Ordered By: Patricia Adams Additional Instructions: F/U with PCP (or NH provider) in 1 week keep patient on 2L free water restriction; sodium tabs 1,000mg BID until sodium is >132. Activity Level: Up with assist and Use Walker Discharge Diet: Diabetic and 2000 ml Fluid Restriction Follow Up Appointments: [facility] [Outside] (Patient [facility] to [facility] Jairo Richardson MD [Primary Care Provider] - Admit to: SNF Discharge Potential: Good Length of Stay: <30 days Can use facility standing orders?: Yes Code Status: DNR/DNI TEDs: N/A Rehab Potential: Good Therapy: Physical Therapy and Occupational Therapy Therapy Orders: Evaluate and Treat Oxygen: No Urinary Catheter: No Orders are good >30 days: No Signature: Amber Li MD
[2022-12-04 14:45] LABS: Urine Osmolality 950 mOsm/kg (50-800)
[2022-12-04 15:00] VITALS: BP 138/90; PULSE 67; RESP 18; O2SAT 97
[2022-12-04 19:00] VITALS: BP 131/82; PULSE 65; RESP 18; TEMP 36.4; O2SAT 97
--- NOTE | 2022-12-04 19:40 | PC.NURSE ---
Nursing Care Hours: [id number] Pt this shift calm and cooperative. Minimal confusion with easy redirect in AM, increased confusion and rambling during sunset. Pt asking about a missing file for a hymn festival and that he wanted to stay in a room at the [facility]. Also mentioned wanting a number for a doctor or higher up who could help him with a friend who has overdosed. When news writer discussed with pt that someone who has overdosed needs to come to ED, pt states, no, its me. VSS, LS clear, incontinent of bladder. No BM this shift. Eating and drinking sufficiently. Assist x1 with walker and gait belt.
--- NOTE | 2022-12-04 22:04 | PC.NURSE ---
PATIENT PLEASANT AND COOPERATIVE, ALTHOUGH NEEDS CONSTANT REDIRECTION RELATED TO ACTIVITIES OF DAILY LIVING, ALERT TO SELF AND PLACE, UP WITH A1 WALKER AND BELT TOLERATING FAIRLY, BG 145 AT BEDTIME PATIENT REQUESTED A SNACK AND ICE CREAM AND PEACHES GIVEN, DECLINING PAIN, ALARMS IN PLACE.
[2022-12-04 23:00] VITALS: PULSE 94
[2022-12-05 00:09] VITALS: BP 134/84; PULSE 72; RESP 16; TEMP 36.4; O2SAT 96
[2022-12-05 02:25] LABS: Hours Collected Not Provided hr; Total Volume Not Provided mL
[2022-12-05 02:54] VITALS: BP 135/85; PULSE 62; RESP 18; TEMP 36.3; O2SAT 98
--- NOTE | 2022-12-05 06:51 | PC.NURSE ---
End of shift from [id number]. Pt alert to self. Plesant and cooperative, but confused. A1 w/ walker and gait belt w/ constant prompting. Denies pain. VSS. Bed alarm in place.
[2022-12-05 07:33] VITALS: BP 125/70; PULSE 65; RESP 18; TEMP 36.3; O2SAT 99
[2022-12-05 07:46] LABS: Chloride* 93 mmol/L (96-114)
[2022-12-05 07:47] LABS: Potassium* 3.9 mmol/L (3.6-5.1); Sodium* 128 mmol/L (135-149)
[2022-12-05 07:49] LABS: Creatinine* 0.7 mg/dL (0.5-1.5); Est. Creatinine Clearance* 49.54; Estimated Glomerular Filt Rate 92 ml/min
[2022-12-05 07:50] LABS: Blood Urea Nitrogen* 15 mg/dL (7-30); Calcium* 8.8 mg/dL (8.4-10.6); Carbon Dioxide* 29 mmol/L (20-32); Creatine Kinase* 673 U/L (54-186); Glucose* 178 mg/dL (60-115)
[2022-12-05] MEDS: APIXABAN 5 MG TABLET PO (08:44)
[2022-12-05] MEDS: METOPROLOL TARTRATE 50 MG TABLET PO (08:44)
[2022-12-05] MEDS: MAGNESIUM OXIDE 400 MG TABLET PO (08:44)
[2022-12-05] MEDS: SODIUM CHLORIDE 0.9 % (FLUSH) 10 ML SYRINGE 5 ML IVF (08:45)
--- NOTE | 2022-12-05 09:15 | PM.IMPN1 ---
Subjective Date Seen: 12/05/22 Interval history: Follow-up to discharge summary, patient visit 12/05/2022. -quiet night, no new events were developments. -patient's sodium is 128. Adding sodium chloride tabs 1 g b.i.d. for the next couple weeks while in rehab. Continue fluid restriction 2 L free water. -likely to graduate from rehab and into [facility] -continue therapies. Exam Const: Vital Signs, click to edit/add: Vital Signs - 24 hr 12/04/22 11:00 12/04/22 15:00 12/04/22 15:00 Temperature 97.5 F L Pulse Rate 67 Pulse Rate [Pulse Oximeter] 71 67 Respiratory Rate 18 18 Blood Pressure [Le ft Arm] 107/65 Pulse Oximetry 97 Oxygen Delivery Me thod Room Air 12/04/22 15:00 12/04/22 19:00 12/04/22 23:00 Temperature 97.5 F L Pulse Rate 94 Pulse Rate [Pulse Oximeter] 67 65 Respiratory Rate 18 18 Blood Pressure [Le ft Arm] 138/90 H 131/82 Pulse Oximetry 97 97 Oxygen Delivery Me thod Room Air Room Air 12/05/22 00:09 12/05/22 02:54 12/05/22 07:33 Temperature 97.5 F L 97.3 F L 97.4 F L Pulse Rate Pulse Rate [Pulse Oximeter] 72 62 65 Respiratory Rate 16 18 18 Blood Pressure [Le ft Arm] 134/84 135/85 125/70 Pulse Oximetry 96 98 99 Oxygen Delivery Me thod Room Air Room Air Room Air Labs Labs: Laboratory Results - last 24 hr 12/02/22 12/02/22 12/02/22 00:38 03:50 04:03 Sodium Potassium Chloride Carbon Dioxide BUN Creatinine Estimated Creat Clear Estimated GFR Glucose Serum Osmolality 270 L Calcium Total Creatine Kinase Ur Random Osmolality 950 H Ur Creatinine per Vol 191 Ur Creatinine 24 Hour Not Applicable U Collection Duration Not Provided Urine Total Volume Not Provided Ur Sodium per Vol 68 Ur Sodium mmol/Day Not Applicable 12/05/22 07:05 Sodium 128 L Potassium 3.9 Chloride 93 L Carbon Dioxide 29 BUN 15 Creatinine 0.7 Estimated Creat Clear 49.54 Estimated GFR 92 Glucose 178 H Serum Osmolality Calcium 8.8 Total Creatine Kinase 673 H Ur Random Osmolality Ur Creatinine per Vol Ur Creatinine 24 Hour U Collection Duration Urine Total Volume Ur Sodium per Vol Ur Sodium mmol/Day
[2022-12-05 09:34] VITALS: BP 124/73; PULSE 94; RESP 18; TEMP 36.3
[2022-12-05 10:30] VITALS: BP 124/73; PULSE 94; RESP 18; TEMP 36.3
--- NOTE | 2022-12-05 14:22 | PC.NURSE ---
shift note: pt dc'd to [facility] via private vehicle. nurse to nurse given prior to dc to Ira[facility] at [facility]. Orders sent via fax and also sent with pt's friends to give to nursing. pt denies pain. pt up sba/walker. vss stable. IV x2 removed from rt u/e intact. Belongings reviewed and sent with pt at dc
== END 2022-12-05 10:30 | DRG 640 ==
LOC: ED 15:41 → MEDSURG 15:42
PROVIDERS: Family Medicine; Admitting Provider Hospitalist; Emergency Provider Emergency Medicine Emergency Medical Services; PCP Family Medicine; Visit Provider Hospitalist
DX: E87.1 Hypo-osmolality and hyponatremia (principal); G93.41 Metabolic encephalopathy; M62.82 Rhabdomyolysis; E86.0 Dehydration; R53.1 Weakness; I48.91 Unspecified atrial fibrillation; F32.A Depression, unspecified; E11.9 Type 2 diabetes mellitus without complications; Z79.84 Long term (current) use of oral hypoglycemic drugs; H10.30 Unspecified acute conjunctivitis, unspecified eye; W19.XXXA Unspecified fall, initial encounter; Z91.81 History of falling; F03.90 Unspecified dementia, unspecified severity, without behavioral disturbance, psychotic disturbance, mood disturbance, and anxiety
CPT/HCPCS: 36415; 51798; 70450; 80048; 80053; 80076; 81003; 81015; 82550; 82962; 83735; 83930; 83935; 84295; 84300; 84443; 84484; 85025; 87081; 87635; 93005; 93306; 97116; 97161; 97165; 97530; 97535; 99284; 99285; A9270; J7030; J7120; P9047

== ENCOUNTER 2022-12-18 15:56 | Outpatient (REF) | payer SELFPAY ==
[2022-12-18 16:23] LABS: Chloride* 93 mmol/L (96-114); Sodium* 131 mmol/L (135-149)
[2022-12-18 16:24] LABS: Potassium* 4.3 mmol/L (3.6-5.1)
[2022-12-18 16:26] LABS: Carbon Dioxide* 29 mmol/L (20-32); Creatinine* 0.7 mg/dL (0.5-1.5); Estimated Glomerular Filt Rate 92 ml/min
[2022-12-18 16:27] LABS: Blood Urea Nitrogen* 17 mg/dL (7-30); Calcium* 9.4 mg/dL (8.4-10.6); Glucose* 134 mg/dL (60-115)
== END 2022-12-18 15:57 | disposition home or self-care (01) ==
LOC: NPINS 15:56
PROVIDERS: PCP Family Medicine; Visit Provider Family Medicine
DX: E11.40 Type 2 diabetes mellitus with diabetic neuropathy, unspecified (principal)
CPT/HCPCS: 80048

== ENCOUNTER 2023-02-08 15:39 | Outpatient (REF) | payer MEDICARE, BC, SELFPAY ==
[2023-02-08 16:26] LABS: Appearance Urine Clear (Clear); Bilirubin Urine Negative (Negative); Blood Urine Trace-intact (Negative); Color Urine Yellow (Yellow); Glucose Urine Negative (Negative); Ketones Urine Negative (Negative); Leukocyte Esterase Urine Negative (Negative); Nitrite Urine Negative (Negative); Protein Urine Negative (Negative); Urobilinogen Urine 0.2 (0.2-1.0)
[2023-02-08 16:44] LABS: RBC Urine 0-2 (0-2); WBC Urine 0-2 (0-5)
== END 2023-02-08 15:40 | disposition home or self-care (01) ==
LOC: NPINS 15:39
PROVIDERS: PCP Family Medicine; Visit Provider Nurse Practitioner Gerontology
DX: R41.82 Altered mental status, unspecified (principal); R53.1 Weakness
CPT/HCPCS: 81001; 87086

== ENCOUNTER 2023-02-20 11:23 | Outpatient (CLI) | payer MEDICARE, BC, SELFPAY | END 2023-02-20 11:24 | disposition home or self-care (01) | LOC: AMB 02-22 12:37 | PROVIDERS: PCP Family Medicine; Visit Provider Family Medicine | DX: R41.82 Altered mental status, unspecified (principal); R53.1 Weakness | CPT/HCPCS: A0425; A0429 ==

== ENCOUNTER 2023-02-20 11:37 | Emergency (ER) | payer MEDICARE, BC, SELFPAY ==
[2023-02-20] VITALS (15 sets, daily range): BP systolic 113–132; BP diastolic 67–76; PULSE 60–89; RESP 16; TEMP 36.3; O2SAT 82–99; BMI 21.9
--- NOTE | 2023-02-20 11:46 | CRLHL7_ITS ---
For Patients: As a result of the Century Cures Act, medical imaging exams and procedure reports are released immediately into your electronic medical record. You may view this report before your referring provider. If you have questions, please contact your health care provider. Indication: Fall Technique: Three views Comparison: None Findings/Impression: Bones: Alignment is normal. No fractures or bone lesions. Joint spaces: Unremarkable. Soft tissues: Dorsal soft tissue swelling. Intravenous line at the antecubital fossa. Dictated by Steven Preciado MD @ 02/20/2023 1:26:01 PM (Electronically Signed)
--- NOTE | 2023-02-20 11:47 | CRLHL7_ITS ---
For Patients: As a result of the Century Cures Act, medical imaging exams and procedure reports are released immediately into your electronic medical record. You may view this report before your referring provider. If you have questions, please contact your health care provider. INDICATION: Fall TECHNIQUE: Noncontrast axial CT of the head. Coronal and sagittal reformats. Bone and soft tissue algorithms. COMPARISON: CT head report 12/01/2022 FINDINGS: The ventricles and cortical sulci are mildly prominent. No midline shift or mass effect. No acute intracranial hemorrhage or extra-axial fluid collection. Davenport-white matter differentiation is grossly maintained. Mild calcific plaquing at the carotid siphons. Incidental partial empty sella configuration. Bony calvarium appears grossly intact. Paranasal sinuses and mastoid air cells are clear. Bilateral lens implants. IMPRESSION: No evidence of skull fracture or acute intracranial hemorrhage. Please note that all CT scans at this facility use dose modulation, iterative reconstruction, and/or weight-based dosing when appropriate to reduce radiation dose to as low as reasonably achievable. Dictated by Meka Luong MD @ 02/20/2023 1:37:07 PM (Electronically Signed)
--- NOTE | 2023-02-20 11:47 | ED.GENADULT ---
HPI - General Adult General Chief complaint: Extremity Pain/Injury, Upper Stated complaint: fall Time Seen by Provider: 02/20/23 11:40 History of Present Illness HPI narrative: Patient is an 82-year-old male [facility]. Apparently had a fall from a standing height today injured his left elbow he has got some bruising, but he has no pain and he has full range of motion he reports. He is on Eliquis for AFib, he has type 2 diabetes, he has a history of hyponatremia. Patient was arrived via ambulance without complaint. He is alert orient x3, but the staff reported that he has a little less alert than he has been in the past no other specific complaints, no chest pain, no shortness of breath, no breathing difficulty, no leg swelling that is different than baseline or other issues he reports he has been eating and drinking well, he normally ambulates. He denies hip pain Related Data Home Medications Medication Instructions Recorded Confirmed metformin 500 mg tablet,extended 2,000 mg PO DAILY 12/01/22 02/20/23 release 24 hr trazodone 50 mg tablet 25 mg PO HS 12/01/22 02/20/23 clotrimazole 1 % topical cream applic topical 3XD 02/20/23 (Athlete's Foot (clotrimazole)) metoprolol tartrate 25 mg tablet mg PO 02/20/23 sennosides 8.6 mg tablet (senna) 8.6 mg PO QAM constipation 02/20/23 02/20/23 Previous Rx's Medication Instructions Recorded apixaban 5 mg tablet (Eliquis) 5 mg PO BID #60 tabs 12/04/22 metoprolol tartrate 50 mg tablet 50 mg PO BID #60 tabs 12/04/22 sodium chloride 1,000 mg soluble 1,000 mg PO BID PRN electrolyte 12/05/22 tablet replenishment #60 tabs Allergies Allergy/AdvReac Type Severity Reaction Status Date / Time buspirone Allergy Mild constipatio Verified 02/20/23 11:55 n gluten Allergy Mild Verified 02/20/23 11:55 metformin Allergy Verified 02/20/23 11:55 dust Allergy Unknown Uncoded 02/20/23 11:55 Review of Systems Status of ROS: Reports: 6 or more systems reviewed and unremarkable except as noted in History and below [facility] Medical History Fall ?W19.XXXA - Unspecified fall, initial encounter (ICD-10) Conjunctivitis ?H10.9 - Unspecified conjunctivitis (ICD-10) Type 2 diabetes mellitus ?E11.9 - Type 2 diabetes mellitus without complications (ICD-10) Social History What is your current living situation?: I presently have a place to live Problems where you live: no known problems Problems where you live details: none. In the past 12 months, utilities in danger of being shut off: no In the past 12 mos, have been you worried that your food would run out before you had money to buy more?: never true In the past 12 mos, the food you bought just didn't last and you didn't have money to buy more?: never true Highest level of school completed/degree received: Doctoral degree Smoking Status: Never smoker Second hand tobacco smoke exposure: No How often do you have a drink containing alcohol: 2-3 times a week Alcohol type: wine How many standard drinks containing alcohol do you have on a typical day: 1 or 2 How often do you have six or more drinks on one occasion: Never AUDIT-C Alcohol total score: 3 Non-prescribed substance use: denies use Caffeine: Yes (coffee 1-3x per week) How often does anyone, including family, friends and others, physically hurt you: never How often does anyone, including family, friends and others, insult or talk down to you: never How often does anyone, including family, friends and others, threaten you with harm: never How often does anyone, including family, friends and others, scream or curse at you: never service: No Exam Narrative: Exam Narrative: Objective: Patient's vital signs are being obtained, they were normal for EMS Alert orient x3, no head injury, no neck pain, he is alert opens his eyes to voice, he has no other complaints chest back abdomen upper lower extremities unremarkable other than some bruising over the left elbow, he has full range of motion of his arms and legs, I am able to flex extend and internally x-ray rotate his hips without difficulty or pain. Const: Vital Signs, click to edit/add: Vital Signs - 24 hr 02/20/23 11:45 02/20/23 12:20 02/20/23 12:30 Temperature 97.3 F L Pulse Rate 61 62 Pulse Rate [Right Pulse Oximeter] 62 Respiratory Rate 16 Blood Pressure Blood Pressure [Ri ght Upper Arm] 113/67 Pulse Oximetry 98 97 98 Oxygen Delivery Me thod Room Air 02/20/23 12:32 02/20/23 12:33 02/20/23 12:45 Temperature Pulse Rate 60 70 61 Pulse Rate [Right Pulse Oximeter] Respiratory Rate Blood Pressure 114/72 Blood Pressure [Ri ght Upper Arm] Pulse Oximetry 97 97 99 Oxygen Delivery Me thod 02/20/23 13:00 02/20/23 13:02 02/20/23 13:15 Temperature Pulse Rate 62 65 Pulse Rate [Right Pulse Oximeter] Respiratory Rate Blood Pressure 119/72 Blood Pressure [Ri ght Upper Arm] Pulse Oximetry 98 99 82 L Oxygen Delivery Me thod Course Vital Signs Vital signs: Initial Vital Signs Temperature 97.3 F L 02/20/23 11:45 Temperature Source Temporal Artery Scan 02/20/23 11:45 Pulse Rate 62 02/20/23 11:45 Respiratory Rate 16 02/20/23 11:45 Blood Pressure 113/67 02/20/23 11:45 Blood Pressure Mean 82 02/20/23 11:45 Blood Pressure Position Sitting 02/20/23 11:45 Pulse Oximetry 98 02/20/23 11:45 Oxygen Delivery Method Room Air 02/20/23 11:45 Vital Signs Temperature 97.3 F L 02/20/23 11:45 Pulse Rate 62 02/20/23 11:45 Respiratory Rate 16 02/20/23 11:45 Blood Pressure 113/67 02/20/23 11:45 Pulse Oximetry 98 02/20/23 11:45 Oxygen Delivery Method Room Air 02/20/23 11:45 Temperature 97.3 F L 02/20/23 11:45 Pulse Rate 65 02/20/23 13:02 Respiratory Rate 16 02/20/23 11:45 Blood Pressure 119/72 02/20/23 13:02 Pulse Oximetry 82 L 02/20/23 13:15 Oxygen Delivery Method Room Air 02/20/23 11:45 Medical Decision Making MDM Narrative Medical decision making narrative: [age] white male with history of memory care, on blood thinner, with a fall from a standing height. He had a swollen left elbow. Will check an x-ray of the elbow will do a head CT for completeness, he had a negative urinalysis today, will check his labs including sodium today. If these are reassuring I think can go back will make sure that he can ambulate as per usual. Addendum 12:49 p.m.: By my read his x-ray of his elbow looks unremarkable. His laboratory studies look reassuring in the form of negative CRP white count normal at 6 on 150 hemoglobin 12.2 and a negative urinalysis earlier in the day sodium 134 glucose 151 nonfasting AST slightly elevated 54. Patient will be allowed to ambulate and will see how he does if doing okay can be returned to the assisted. Follow up with regular doctor next couple of days with update. Return to ED as needed. Lab Data Labs: Lab Results 02/20/23 Range/Units 12:05 WBC 6.85 (4.50-11.00) K/uL RBC 3.71 L (4.30-5.90) m/uL Hgb 12.2 L (13.5-17.5) gm/dL Hct 35.8 L (37.0-53.0) % MCV 97 (80-100) fL MCH 33 (26-34) pg MCHC 34 (32-36) gm/dL RDW Coeff of Patricia 12.7 (11.5-15.5) % Plt Count 234 (140-440) K/uL Neut % (Auto) 77.0 H (42.0-72.0) % Lymph % (Auto) 11.2 L (20-44) % [place] % (Auto) 9.6 (0.0-11.0) % Eos % (Auto) 1.8 (0.0-7.0) % Baso % (Auto) 0.3 (0.0-3.0) % Neut # (Auto) 5.30 (1.7-7.0) K/uL Lymph # (Auto) 0.80 L (0.90-2.90) K/uL [place] # (Auto) 0.70 (0.00-0.90) K/UL Eos # (Auto) 0.12 (0.00-0.50) K/uL Baso # (Auto) 0.02 (0.00-0.30) K/uL Abs Immat Gran (auto) 0.01 (0.00-0.30) K/uL Imm/Tot Granulo (auto) 0.1 % Sodium 134 L (135-149) mmol/L Potassium 4.1 (3.6-5.1) mmol/L Chloride 99 (96-114) mmol/L Carbon Dioxide 29 (20-32) mmol/L Anion Gap 6 L (7-15) mEq/L BUN 21 (7-30) mg/dL Creatinine 0.7 (0.5-1.5) mg/dL Estimated Creat Clear 51.16 Estimated GFR 92 ml/min Glucose 151 H (60-115) mg/dL Calcium 9.3 (8.4-10.6) mg/dL Total Bilirubin 0.7 (0.1-1.5) mg/dL Direct Bilirubin 0.0 (0.0-0.5) mg/dL AST 54 H (12-35) U/L ALT 26 (4-50) U/L Alkaline Phosphatase 75 (40-150) U/L C-Reactive Protein < 0.5 L (0.5-1.0) mg/dL Total Protein 6.5 (6.0-8.3) g/dL Albumin 3.9 (3.3-5.0) g/dL Discharge Plan Discharge Clinical Impression: Left elbow pain, Fall Patient Disposition: Home w/ Parent or Adult Condition: Stable Additional Instructions: Observe, ambulated with assistance as tolerated, follow up with primary care in the next few days certainly sooner changes or concerns. May take Tylenol for the elbow, and recommend ice to the elbow as needed Activity Level: Light activity Discharge Diet: Regular Prescriptions: No Action trazodone 50 mg tablet 25 mg PO HS metformin 500 mg tablet extended release 24 hr 2,000 mg PO DAILY metoprolol tartrate 50 mg Tablet 50 mg PO BID Qty: 60 0RF Eliquis 5 mg Tablet 5 mg PO BID Qty: 60 0RF sodium chloride 1,000 mg tablet,soluble 1,000 mg PO BID PRN (Reason: electrolyte replenishment) Qty: 60 0RF sennosides [senna] 8.6 mg tablet 8.6 mg PO QAM clotrimazole [Athlete's Foot (clotrimazole)] 1 % cream topical 3XD metoprolol tartrate 25 mg tablet PO Follow Up/Referrals: Jairo Richardson MD [Primary Care Provider] - Stand Alone Forms: [employer] Info Instructions
[2023-02-20] MEDS: 0.9 % SODIUM CHLORIDE 500 ML 500 ML IV (12:17)
[2023-02-20 12:22] LABS: Basophils Absolute Auto 0.02 K/uL (0.00-0.30); Basophils Percent Auto 0.3 % (0.0-3.0); Eosinophils Absolute Auto 0.12 K/uL (0.00-0.50); Eosinophils Percent Auto 1.8 % (0.0-7.0); Hematocrit 35.8 % (37.0-53.0); Hemoglobin* 12.2 gm/dL (13.5-17.5); Immature Granulocytes Abs Auto 0.01 K/uL (0.00-0.30); Immature Granulocytes Pct Auto 0.1 %; Lymphocytes Percent Auto 11.2 % (20-44); Mean Corpuscular HGB Conc 34 gm/dL (32-36); Mean Corpuscular Hemoglobin 33 pg (26-34); Mean Corpuscular Volume 97 fL (80-100); Monocytes Percent Auto 9.6 % (0.0-11.0); Platelet Count* 234 K/uL (140-440); RDW Coefficient of Variation % 12.7 % (11.5-15.5); Red Blood Count 3.71 m/uL (4.30-5.90); Slide Review Reflex No; White Blood Count* 6.85 K/uL (4.50-11.00)
[2023-02-20 12:28] LABS: Albumin* 3.9 g/dL (3.3-5.0); Chloride* 99 mmol/L (96-114)
[2023-02-20 12:29] LABS: Potassium* 4.1 mmol/L (3.6-5.1); Sodium* 134 mmol/L (135-149)
[2023-02-20 12:31] LABS: Creatinine* 0.7 mg/dL (0.5-1.5); Est. Creatinine Clearance* 51.16; Estimated Glomerular Filt Rate 92 ml/min
[2023-02-20 12:32] LABS: Alanine Aminotransferase* 26 U/L (4-50); Alkaline Phosphatase* 75 U/L (40-150); Anion Gap 6 mEq/L (7-15); Aspartate Amino Transferase* 54 U/L (12-35); Bilirubin Total* 0.7 mg/dL (0.1-1.5); Blood Urea Nitrogen* 21 mg/dL (7-30); Calcium* 9.3 mg/dL (8.4-10.6); Carbon Dioxide* 29 mmol/L (20-32); Glucose* 151 mg/dL (60-115); Total Protein* 6.5 g/dL (6.0-8.3)
[2023-02-20 12:35] LABS: C Reactive Protein* < 0.5 mg/dL (0.5-1.0)
--- NOTE | 2023-02-20 13:56 | ED.NURSE ---
ambulated pt 25 ft with use of walker and gait belt, tolerated ambulation fairly well, did need a full assist to go from sitting on the edge of the bed to standing.
== END 2023-02-20 14:42 | disposition home or self-care (01) ==
PROVIDERS: Emergency Provider Family Medicine; PCP Family Medicine
DX: M25.522 Pain in left elbow (principal); W19.XXXA Unspecified fall, initial encounter
CPT/HCPCS: 36415; 70450; 73080; 80048; 80076; 85025; 86140; 96360; 99284; 99285; J7120

== ENCOUNTER 2023-03-05 12:31 | Outpatient (REF) | payer MEDICARE, BC, SELFPAY ==
[2023-03-05 13:01] LABS: Hemoglobin A1C* 7.71 % (0-5.6)
[2023-03-05 13:28] LABS: Vitamin D 25 Hydroxy* 46 ng/mL (30-80)
[2023-03-05 13:39] LABS: Chloride* 96 mmol/L (96-114); Potassium* 4.1 mmol/L (3.6-5.1); Sodium* 135 mmol/L (135-149)
[2023-03-05 13:41] LABS: Creatinine* 0.8 mg/dL (0.5-1.5); Estimated Glomerular Filt Rate 88 ml/min
[2023-03-05 13:42] LABS: Anion Gap 10 mEq/L (7-15); Blood Urea Nitrogen* 26 mg/dL (7-30); Calcium* 9.8 mg/dL (8.4-10.6); Carbon Dioxide* 29 mmol/L (20-32); Glucose* 235 mg/dL (60-115)
== END 2023-03-05 12:32 | disposition home or self-care (01) ==
LOC: NPINS 12:31
PROVIDERS: PCP Family Medicine; Visit Provider Family Medicine
DX: E11.9 Type 2 diabetes mellitus without complications (principal); E55.9 Vitamin D deficiency, unspecified
CPT/HCPCS: 80048; 82306; 83036

== ENCOUNTER 2023-03-12 13:20 | Outpatient (REF) | payer MEDICARE, BC, SELFPAY ==
[2023-03-12 13:43] LABS: Chloride* 98 mmol/L (96-114); Sodium* 134 mmol/L (135-149)
[2023-03-12 13:44] LABS: Potassium* 4.2 mmol/L (3.6-5.1)
[2023-03-12 13:46] LABS: Anion Gap 8 mEq/L (7-15); Carbon Dioxide* 28 mmol/L (20-32); Creatinine* 0.8 mg/dL (0.5-1.5); Estimated Glomerular Filt Rate 88 ml/min
[2023-03-12 13:47] LABS: Blood Urea Nitrogen* 16 mg/dL (7-30); Calcium* 9.5 mg/dL (8.4-10.6); Glucose* 249 mg/dL (60-115)
== END 2023-03-12 13:21 | disposition home or self-care (01) ==
LOC: NPCLIENT 13:20
PROVIDERS: PCP Family Medicine; Visit Provider Family Medicine
DX: E87.1 Hypo-osmolality and hyponatremia (principal)
CPT/HCPCS: 80048

== ENCOUNTER 2023-03-15 17:37 | Emergency (ER) | payer MEDICARE, BC, SELFPAY ==
[2023-03-15 17:55] VITALS: BP 123/76; PULSE 68; RESP 16; TEMP 36.8; O2SAT 98; BMI 22.0
--- NOTE | 2023-03-15 18:00 | CRLHL7_ITS ---
For Patients: As a result of the Century Cures Act, medical imaging exams and procedure reports are released immediately into your electronic medical record. You may view this report before your referring provider. If you have questions, please contact your health care provider. INDICATION: Trauma, fall. TECHNIQUE: CT head without contrast. COMPARISON: 02/20/2023. FINDINGS: CSF spaces: Proportionate prominence of the ventricles and sulci, reflecting mild generalized cerebral volume loss. Brain parenchyma: The barajas-white differentiation is maintained. No sign of mass, hemorrhage, or midline shift. Skull base and calvarium: The visualized paranasal sinuses and mastoid air cells demonstrate no acute or significant findings. Bilateral lens extraction. No skull fractures. IMPRESSION: No acute intracranial abnormality. Please note that all CT scans at this facility use dose modulation, iterative reconstruction, and/or weight-based dosing when appropriate to reduce radiation dose to as low as reasonably achievable. Dictated by Reji Ramirez MD @ 03/15/2023 8:07:03 PM (Electronically Signed)
--- NOTE | 2023-03-15 18:04 | ED_ITS ---
HPI - Fall General Time Seen by Provider: 18:04 Date Seen: 03/15/23 Chief Complaint: Fall/Minor Trauma Stated Complaint: Fell, head lac Time Seen by Provider: 03/15/23 17:47 Source: patient and RN notes reviewed Mode of arrival: ambulatory Limitations: no limitations History of Present Illness HPI Narrative: Patient is an 82-year-old male resident of been addicting that fell changing closed tonight. He was up changing clothes, lost his balance and fell hitting the left side of his head on the dresser. There was no loss of consciousness. He states he really does not have a headache, no significant head pain. Does not have any neck or back pain. Nothing else was injured. He did not fall due to any sense of cardiopulmonary issues. He does not know his tetanus status. Past medical history in his outside paperwork shows constipation, atrial fibrillation, history of rhabdomyolysis and elevated liver enzymes, history of hyponatremia, insomnia, history of falling, type 2 diabetes, depression, mild cognitive impairment. MD complaint: fall Related Data Home Medications Medication Instructions Recorded Confirmed metformin 500 mg tablet,extended 2,000 mg PO DAILY 12/01/22 02/20/23 release 24 hr trazodone 50 mg tablet 25 mg PO HS 12/01/22 02/20/23 clotrimazole 1 % topical cream applic topical 3XD 02/20/23 (Athlete's Foot (clotrimazole)) metoprolol tartrate 25 mg tablet mg PO 02/20/23 sennosides 8.6 mg tablet (senna) 8.6 mg PO QAM constipation 02/20/23 02/20/23 Previous Rx's Medication Instructions Recorded apixaban 5 mg tablet (Eliquis) 5 mg PO BID #60 tabs 12/04/22 metoprolol tartrate 50 mg tablet 50 mg PO BID #60 tabs 12/04/22 sodium chloride 1,000 mg soluble 1,000 mg PO BID PRN electrolyte 12/05/22 tablet replenishment #60 tabs Allergies Allergy/AdvReac Type Severity Reaction Status Date / Time buspirone Allergy Mild constipatio Verified 02/20/23 11:55 n gluten Allergy Mild Verified 02/20/23 11:55 metformin Allergy Verified 02/20/23 11:55 dust Allergy Unknown Uncoded 02/20/23 11:55 Review of Systems Status of ROS: Reports: 6 or more systems reviewed and unremarkable except as noted in History and below [facility] Medical History Fall ?W19.XXXA - Unspecified fall, initial encounter (ICD-10) Conjunctivitis ?H10.9 - Unspecified conjunctivitis (ICD-10) Type 2 diabetes mellitus ?E11.9 - Type 2 diabetes mellitus without complications (ICD-10) Social History What is your current living situation?: I presently have a place to live Problems where you live: no known problems Problems where you live details: none. In the past 12 months, utilities in danger of being shut off: no In past 12 months, lack of transportation kept you from medical appts, meetings, work, or getting things needed for daily living: no In the past 12 mos, have been you worried that your food would run out before you had money to buy more?: never true In the past 12 mos, the food you bought just didn't last and you didn't have money to buy more?: never true Highest level of school completed/degree received: Doctoral degree Smoking Status: Never smoker Second hand tobacco smoke exposure: No How often do you have a drink containing alcohol: 2-3 times a week Alcohol type: wine How many standard drinks containing alcohol do you have on a typical day: 1 or 2 How often do you have six or more drinks on one occasion: Never AUDIT-C Alcohol total score: 3 Non-prescribed substance use: denies use Caffeine: Yes (coffee 1-3x per week) How often does anyone, including family, friends and others, physically hurt you : never How often does anyone, including family, friends and others, insult or talk down to you: never How often does anyone, including family, friends and others, threaten you with harm: never How often does anyone, including family, friends and others, scream or curse at you: never service: No Exam Const: Vital Signs, click to edit/add: Vital Signs - 24 hr 03/15/23 17:55 Temperature 98.2 F Pulse Rate [Pulse Oximeter] 68 Respiratory Rate 16 Blood Pressure [Ri ght Upper Arm] 123/76 Pulse Oximetry 98 Oxygen Delivery Me thod Room Air 82-year-old male is alert interactive no apparent distress. He is sitting in a wheelchair, does have significant kyphosis. He has a laceration that is not bleeding on his left occipital area, about 3 cm and linear. No midline tenderness over his neck or back. Lungs are clear with good air entry. CV sounds regular, no murmur normal S1 and S2. No tenderness over his clavicles or shoulders, moving his arms. Face is atraumatic, sclera clear conjugate gaze and speech normal. Documenting provider has reviewed patient's vital signs: yes Course Course ED Course: Patient will need a head CT given his Eliquis status. Of note, he does not remember if he is on this but his med rec does show this. He will need closure of his scalp laceration, will likely consider zuly. He has no other complaints at this time, will obtain is head CT and do wound closure. Nursing staff will see if they can find date of his last tetanus. Reevaluation(s) Time of Reevaluation #1: 19:18 Reevaluation #1: Just completed closure of the patient's scalp laceration. He had about a 3 cm laceration on the left upper occipital area. Just minimal oozing. I anesthetized using lidocaine 1% with epinephrine, 5 mL was used locally. The wound was then cleaned with wound cleanser. Wound edges were reapproximated using zuly, 12 used. There is minimal oozing from the zuly, about 5 minutes of direct pressure stopped the bleeding. Will have nursing staff put a turban type bandage on this for the evening. Patient is aware that we are waiting the CT report. Nursing staff was able to locate Tdap date of June 2021. Thus, patient is up-to-date. Time of Reevaluation #2: 20:12 Reevaluation #2: Reviewed negative head CT with patient for any acute intracranial pathology. His wound is still clean dry with the zuly. Vital Signs Vital signs: Initial Vital Signs Temperature 98.2 F 03/15/23 17:55 Temperature Source Temporal Artery Scan 03/15/23 17:55 Pulse Rate 68 03/15/23 17:55 Respiratory Rate 16 03/15/23 17:55 Blood Pressure 123/76 03/15/23 17:55 Blood Pressure Mean 91 03/15/23 17:55 Pulse Oximetry 98 03/15/23 17:55 Oxygen Delivery Method Room Air 03/15/23 17:55 Vital Signs Temperature 98.2 F 03/15/23 17:55 Pulse Rate 68 03/15/23 17:55 Respiratory Rate 16 03/15/23 17:55 Blood Pressure 123/76 03/15/23 17:55 Pulse Oximetry 98 03/15/23 17:55 Oxygen Delivery Method Room Air 03/15/23 17:55 Temperature 98.2 F 03/15/23 17:55 Pulse Rate 68 03/15/23 17:55 Respiratory Rate 16 03/15/23 17:55 Blood Pressure 123/76 03/15/23 17:55 Pulse Oximetry 98 03/15/23 17:55 Oxygen Delivery Method Room Air 03/15/23 17:55 MDM - Fall Imaging Data CT scan - head: Attestation: I have reviewed the pertinent imaging results. Radiologist's impression: Patient: FREDY COLON Facility:?[facility] Patient ID:?[id number] Site Patient ID:?[id number]. Site :?[id number] Study:?CT Head WITHOUT-03/15/2023 6:34:41 PM Ordering Physician:?Mingo Vergara Final Report: INDICATION: Trauma, fall. TECHNIQUE: CT head without contrast. COMPARISON: 02/20/2023. FINDINGS: CSF spaces: Proportionate prominence of the ventricles and sulci, reflecting mild generalized cerebral volume loss. Brain parenchyma: The barajas-white differentiation is maintained. No sign of mass, hemorrhage, or midline shift. Skull base and calvarium: The visualized paranasal sinuses and mastoid air cells demonstrate no acute or significant findings. Bilateral lens extraction. No skull fractures. IMPRESSION: No acute intracranial abnormality. Please note that all CT scans at this facility use dose modulation, iterative reconstruction, and/or weight-based dosing when appropriate to reduce radiation dose to as low as reasonably achievable. Dictated by Reji Ramirez MD @ 03/15/2023 8:07:03 PM (Electronic Signature) Critical Care Time Critical Care Time Critical Care Time: No Discharge Plan Discharge Clinical Impression: Fall, Laceration of scalp Patient Disposition: Home, Self-Care Condition: Stable Instructions: Laceration (ED), Staple Care (ED), Fall Prevention (ED) Additional Instructions: Can take the bandage off tomorrow morning and then use small local bandages as needed. May shower as usually would but be careful to not disrupt the zuly with washing your hair. Would not home this area of your hair until the zuly are out. If there are concerns about rebleeding of the wound, apply direct pressure for full 30 minutes, if bleeding has not stopped then you need re- evaluation. If there are concerns of infection or other concerns about the wound, do recommend you be re-evaluated. Need to make a clinic appointment in about 10 days to have the zuly removed from the scalp. Activity Level: No Restrictions Discharge Diet: Regular Prescriptions: No Action trazodone 50 mg tablet 25 mg PO HS metformin 500 mg tablet extended release 24 hr 2,000 mg PO DAILY metoprolol tartrate 50 mg Tablet 50 mg PO BID Qty: 60 0RF Eliquis 5 mg Tablet 5 mg PO BID Qty: 60 0RF sodium chloride 1,000 mg tablet,soluble 1,000 mg PO BID PRN (Reason: electrolyte replenishment) Qty: 60 0RF sennosides [senna] 8.6 mg tablet 8.6 mg PO QAM clotrimazole [Athlete's Foot (clotrimazole)] 1 % cream topical 3XD metoprolol tartrate 25 mg tablet PO Follow Up/Referrals: Jairo Richardson MD [Primary Care Provider] - Stand Alone Forms: [employer] Info Instructions
== END 2023-03-15 20:20 | disposition home or self-care (01) ==
PROVIDERS: Emergency Provider Family Medicine; PCP Family Medicine
DX: S01.01XA Laceration without foreign body of scalp, initial encounter (principal); W18.30XA Fall on same level, unspecified, initial encounter
CPT/HCPCS: 12002; 70450; 99283; 99284

== ENCOUNTER 2023-03-26 09:09 | Outpatient (REF) | payer MEDICARE, BC, SELFPAY ==
[2023-03-26 09:28] LABS: Appearance Urine Cloudy (Clear); Bilirubin Urine Negative (Negative); Blood Urine Negative (Negative); Color Urine Yellow (Yellow); Glucose Urine Negative (Negative); Ketones Urine Trace (Negative); Leukocyte Esterase Urine Negative (Negative); Nitrite Urine Negative (Negative); Protein Urine 1+ (Negative); Specific Gravity Urine >= 1.030 (1.000-1.030); Urobilinogen Urine 0.2 (0.2-1.0)
[2023-03-26 09:30] LABS: Basophils Percent Auto 0.2 % (0.0-3.0); Eosinophils Percent Auto 0.2 % (0.0-7.0); Hematocrit 36.9 % (37.0-53.0); Hemoglobin* 12.7 gm/dL (13.5-17.5); Immature Granulocytes Pct Auto 0.7 %; Lymphocytes Percent Auto 17.3 % (20-44); Mean Corpuscular HGB Conc 34 gm/dL (32-36); Mean Corpuscular Hemoglobin 33 pg (26-34); Mean Corpuscular Volume 95 fL (80-100); Monocytes Percent Auto 12.5 % (0.0-11.0); Neutrophils Percent Auto 69.1 % (42.0-72.0); Platelet Count* 193 K/uL (140-440); RDW Coefficient of Variation % 13.1 % (11.5-15.5); Red Blood Count 3.87 m/uL (4.30-5.90); White Blood Count* 4.33 K/uL (4.50-11.00)
[2023-03-26 09:34] LABS: Slide Review Reflex No
[2023-03-26 09:35] LABS: Chloride* 96 mmol/L (96-114); Potassium* 3.7 mmol/L (3.6-5.1); Sodium* 131 mmol/L (135-149)
[2023-03-26 09:36] LABS: Amorphous Sediment Urine Many; Calcium Oxalate Crystals Urine Few; RBC Urine 0-2 (0-2); Squamous Epithelial Cell Urine Few (None-Few); WBC Urine 0-2 (0-5)
[2023-03-26 09:38] LABS: Anion Gap 8 mEq/L (7-15); Blood Urea Nitrogen* 17 mg/dL (7-30); Carbon Dioxide* 27 mmol/L (20-32); Creatinine* 0.8 mg/dL (0.5-1.5); Estimated Glomerular Filt Rate 88 ml/min
[2023-03-26 09:39] LABS: Calcium* 8.4 mg/dL (8.4-10.6); Glucose* 126 mg/dL (60-115)
== END 2023-03-26 09:10 | disposition home or self-care (01) ==
LOC: NPINS 09:09
PROVIDERS: PCP Family Medicine; Visit Provider Family Medicine
DX: R53.1 Weakness (principal)
CPT/HCPCS: 80048; 81001; 81003; 81015; 85025

== ENCOUNTER 2023-08-11 22:02 | Outpatient (CLI) | payer MEDICARE, BC, SELFPAY | END 2023-08-11 22:03 | disposition home or self-care (01) | LOC: AMB 08-12 10:05 | PROVIDERS: PCP Family Medicine; Visit Provider Family Medicine | DX: R41.82 Altered mental status, unspecified (principal); S09.90XA Unspecified injury of head, initial encounter; W18.30XA Fall on same level, unspecified, initial encounter; Y92.092 Bedroom in other non-institutional residence as the place of occurrence of the external cause | CPT/HCPCS: A0425; A0429 ==

== ENCOUNTER 2023-08-11 22:25 | Emergency (ER) | payer MEDICARE, BC, SELFPAY ==
[2023-08-11 22:28] VITALS: BP 130/96; PULSE 75; RESP 18; TEMP 36.6; O2SAT 96; BMI 23.8
--- NOTE | 2023-08-11 22:34 | CT_ITS ---
Final Report Patient: FREDY COLON Facility:?[facility] Patient ID:?[id number] Site Patient ID:?[id number]. Site :?[id number] Study:?CT Head W/O-08/12/2023 12:09:35 AM Ordering Physician:CORNELL Final Report: INDICATION: Fall, hematoma, dementia, head injury, head TECHNIQUE: CT Head without i.v. contrast. Coronal and sagittal reformats were obtained. COMPARISON: None FINDINGS: CSF space: Unremarkable for age. Brain: No evidence of mass, acute infarction or hemorrhage is seen. No mass- effect or midline shift is seen. Mild diffuse cortical atrophy is noted. The brain parenchyma is otherwise normal in appearance with preservation of the barajas-white matter junction. Calvarium: The visualized paranasal sinuses are well aerated. The mastoid air cells are clear. The visualized orbits are grossly unremarkable. The patient is status post prior bilateral cataract removal. The calvarium is unremarkable in appearance with no fractures identified. IMPRESSION: 1. No evidence of acute infarction, intracranial hemorrhage, or mass-effect seen. Please note that all CT scans at this facility use dose modulation, iterative reconstruction, and/or weight-based dosing when appropriate to reduce radiation dose to as low as reasonably achievable. Dictated by: Fran Rowe MD @ 08/12/2023 00:16:19 (Electronic Signature)
--- NOTE | 2023-08-11 22:34 | CT_ITS ---
Final Report Patient: FREDY COLON Facility:?[facility] Patient ID:?[id number] Site Patient ID:?[id number]. Site :?[id number] Study:?CT Spine C-SPINE W/O-08/12/2023 12:11:39 AM Ordering Physician:CORNELL Final Report: INDICATION: Fall trauma neck injury TECHNIQUE: CT cervical spine without i.v. contrast. Coronal and sagittal reformats were obtained. COMPARISON: None FINDINGS: Alignment: Unremarkable. Bone: Moderate chronic appearing compression deformities are seen along the superior endplates of C7 and T1. Disc: Moderate degenerative disc narrowing seen at C3-4 with severe disc narrowing seen at C4-5. The facet joints are unremarkable. Soft tissue: The prevertebral soft tissues are unremarkable in appearance. The visualized lung apices and mediastinum are unremarkable. IMPRESSION: 1. Moderate chronic appearing compression deformities are seen along the superior endplates of C7 and T1. Comparison with any prior outside imaging is recommended. If these cannot be obtained, assessment with MRI may be helpful. Dictated by Fran Rowe MD @ 08/12/2023 12:19:05 AM Please note that all CT scans at this facility use dose modulation, iterative reconstruction, and/or weight-based dosing when appropriate to reduce radiation dose to as low as reasonably achievable. Dictated by: Fran Rowe MD @ 08/12/2023 00:19:09 (Electronic Signature)
[2023-08-11 22:48] LABS: Appearance Urine Clear (Clear); Bilirubin Urine Negative (Negative); Blood Urine Negative (Negative); Color Urine Yellow (Yellow); Glucose Urine Negative (Negative); Ketones Urine Negative (Negative); Leukocyte Esterase Urine Negative (Negative); Nitrite Urine Negative (Negative); Protein Urine Trace (Negative); Specific Gravity Urine 1.025 (1.000-1.030); Urobilinogen Urine 0.2 (0.2-1.0)
[2023-08-11 23:07] LABS: Basophils Absolute Auto 0.01 K/uL (0.00-0.30); Basophils Percent Auto 0.2 % (0.0-3.0); Eosinophils Absolute Auto 0.11 K/uL (0.00-0.50); Eosinophils Percent Auto 1.8 % (0.0-7.0); Hematocrit 34.4 % (37.0-53.0); Hemoglobin* 11.5 gm/dL (13.5-17.5); Immature Granulocytes Abs Auto 0.06 K/uL (0.00-0.30); Lymphocytes Percent Auto 12.3 % (20-44); Mean Corpuscular HGB Conc 33 gm/dL (32-36); Mean Corpuscular Hemoglobin 33 pg (26-34); Mean Corpuscular Volume 97 fL (80-100); Monocytes Percent Auto 9.6 % (0.0-11.0); Neutrophils Percent Auto 75.1 % (42.0-72.0); Platelet Count* 192 K/uL (140-440); RDW Coefficient of Variation % 13.1 % (11.5-15.5); Red Blood Count 3.54 m/uL (4.30-5.90); White Blood Count* 6.17 K/uL (4.50-11.00)
[2023-08-11 23:11] LABS: Amorphous Sediment Urine Few; Bacteria Urine Moderate; RBC Urine 0-2 (0-2); Squamous Epithelial Cell Urine Moderate (None-Few)
[2023-08-11 23:13] LABS: Chloride* 100 mmol/L (96-114); Potassium* 3.9 mmol/L (3.6-5.1); Sodium* 134 mmol/L (135-149)
[2023-08-11 23:15] LABS: Slide Review Reflex No
[2023-08-11 23:16] LABS: Anion Gap 6 mEq/L (7-15); Carbon Dioxide* 28 mmol/L (20-32); Creatinine* 0.9 mg/dL (0.5-1.5); Est. Creatinine Clearance* 43.23; Estimated Glomerular Filt Rate 85 ml/min
[2023-08-11 23:17] LABS: Blood Urea Nitrogen* 35 mg/dL (7-30); Calcium* 9.4 mg/dL (8.4-10.6); Glucose* 166 mg/dL (60-115)
[2023-08-11 23:38] LABS: PCR FLU A Negative PCR FLU A (Negative); PCR FLU B Negative PCR FLU B (Negative); PCR RSV Negative PCR RSV (Negative); SARS PCR* Negative SARS-CoV-2 (Negative)
--- NOTE | 2023-08-12 00:38 | ED.FALL ---
HPI - Fall General Date Seen: 08/12/23 Chief Complaint: Fall/Minor Trauma Stated Complaint: Fall Time Seen by Provider: 08/11/23 22:26 Source: patient, EMS, RN notes reviewed and old records reviewed Mode of arrival: EMS Limitations: no limitations History of Present Illness HPI Narrative: Patient is a 83-year-old gentleman, from [facility], he came over to be evaluated because of falls he apparently has fallen 3 times today. He disputes this and says he did not fall. He does not have any pain at all. Denies any fevers chills chest pain shortness of breath or anything else. Brought in by EMS. MD complaint: fall Fall from: standing Fall witnessed: no Place fall occurred: home Loss of consciousness: No Prolonged down time: no Symptoms prior to fall: none Severity: mild Associated symptoms (after fall): denies Related Data Home Medications Medication Instructions Recorded Confirmed metformin 500 mg tablet,extended 2,000 mg PO DAILY 12/01/22 04/05/23 release 24 hr trazodone 50 mg tablet 25 mg PO HS 12/01/22 04/05/23 clotrimazole 1 % topical cream applic topical 3XD 02/20/23 04/05/23 (Athlete's Foot (clotrimazole)) metoprolol tartrate 25 mg tablet mg PO 02/20/23 04/05/23 sennosides 8.6 mg tablet (senna) 8.6 mg PO QAM constipation 02/20/23 04/05/23 Previous Rx's Medication Instructions Recorded apixaban 5 mg tablet (Eliquis) 5 mg PO BID #60 tabs 12/04/22 metoprolol tartrate 50 mg tablet 50 mg PO BID #60 tabs 12/04/22 sodium chloride 1,000 mg soluble 1,000 mg PO BID PRN electrolyte 12/05/22 tablet replenishment #60 tabs Allergies Allergy/AdvReac Type Severity Reaction Status Date / Time buspirone Allergy Mild constipatio Verified 04/05/23 13:44 n gluten Allergy Mild Verified 04/05/23 13:44 metformin Allergy Verified 04/05/23 13:44 dust Allergy Unknown Uncoded 04/05/23 13:44 Review of Systems Status of ROS: Reports: 10 or more systems reviewed and unremarkable except as noted in History and below PFSH [facility] Medical History Fall ?W19.XXXA - Unspecified fall, initial encounter (ICD-10) Conjunctivitis ?H10.9 - Unspecified conjunctivitis (ICD-10) Type 2 diabetes mellitus ?E11.9 - Type 2 diabetes mellitus without complications (ICD-10) Social History What is your current living situation?: I presently have a place to live Problems where you live: no known problems Problems where you live details: none. In the past 12 months, utilities in danger of being shut off: no In past 12 months, lack of transportation kept you from medical appts, meetings, work, or getting things needed for daily living: no In the past 12 mos, have been you worried that your food would run out before you had money to buy more?: never true In the past 12 mos, the food you bought just didn't last and you didn't have money to buy more?: never true Highest level of school completed/degree received: Doctoral degree Smoking Status: Never smoker Second hand tobacco smoke exposure: No How often do you have a drink containing alcohol: 2-3 times a week Alcohol type: wine How many standard drinks containing alcohol do you have on a typical day: 1 or 2 How often do you have six or more drinks on one occasion: Never AUDIT-C Alcohol total score: 3 Non-prescribed substance use: denies use Caffeine: Yes (coffee 1-3x per week) How often does anyone, including family, friends and others, physically hurt you: never How often does anyone, including family, friends and others, insult or talk down to you: never How often does anyone, including family, friends and others, threaten you with harm: never How often does anyone, including family, friends and others, scream or curse at you: never service: No Exam Narrative: Exam Narrative: Patient is no apparent distress seen in room 3, he is able to sit up for me, tell me that 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 Recently has moved over to [facility]. Has been hospitalized here before for what looks to be in couple up with the, he clearly is not encephalopathic now. Pupils are equal round reactive to light he tracks normally with absence of nystagmus TMs are normal oropharynx normal C-spine is nontender moves through full range of motion. No evidence of injury over his head or neck region chest is good air entry bilaterally irregular regular heart rhythm. Consistent with atrial fibrillation abdomen is soft there is no guarding no organomegaly, wears a diaper, no rashes noted. Moves all extremities independently well and well to commands. No evidence of any tenderness over his T-spine L-spine or C-spine. No evidence of bruising also. Const: Vital Signs, click to edit/add: Vital Signs - 24 hr 08/11/23 22:28 Temperature 97.9 F Pulse Rate [Pulse Oximeter] 75 Respiratory Rate 18 Blood Pressure [Ri ght Upper Arm] 130/96 H Pulse Oximetry 96 Oxygen Delivery Me thod Room Air Documenting provider has reviewed patient's vital signs: yes Course Course ED Course: Patient was able ambulate with the walker, he has no concerns at all would like to go home back to [facility] care I do not. I do not think this is unreasonable, there was some bacteria on his catheterization, so I think we should give him some antibiotics we gave him 1 dose here. I think he can go back at this point with normal vital signs and otherwise being okay. Vital Signs Vital signs: Initial Vital Signs Temperature 97.9 F 08/11/23 22:28 Temperature Source Temporal Artery Scan 08/11/23 22:28 Pulse Rate 75 08/11/23 22:28 Respiratory Rate 18 08/11/23 22:28 Blood Pressure 130/96 H 08/11/23 22:28 Blood Pressure Mean 107 H 08/11/23 22:28 Blood Pressure Position Sitting 08/11/23 22:28 Pulse Oximetry 96 08/11/23 22:28 Oxygen Delivery Method Room Air 08/11/23 22:28 Vital Signs Temperature 97.9 F 08/11/23 22:28 Pulse Rate 75 08/11/23 22:28 Respiratory Rate 18 08/11/23 22:28 Blood Pressure 130/96 H 08/11/23 22:28 Pulse Oximetry 96 08/11/23 22:28 Oxygen Delivery Method Room Air 08/11/23 22:28 Temperature 97.9 F 08/11/23 22:28 Pulse Rate 75 08/11/23 22:28 Respiratory Rate 08/11/23 22:28 Blood Pressure 130/96 H 08/11/23 22:28 Pulse Oximetry 96 08/11/23 22:28 Oxygen Delivery Method Room Air 08/11/23 22:28 Medications Administered Medications: Generic Name Dose Route Start Last Admin Trade Name Nealq PRN Reason Stop Dose Admin Cephalexin HCl 500 mg 08/12/23 00:45 08/12/23 01:15 Cephalexin 500 Mg Capsule PO 08/12/23 00:46 500 mg ONCE ONE Administration MDM - Fall MDM Narrative Medical decision making narrative: Life-threatening differential diagnosis considered include stroke, coronary artery disease, pneumonia, and heart failure. Other differential diagnosis include but are not limited to electrolyte imbalances, anemia, medication reactions, and urinary tract infection Awaiting reports on CT, of his head and neck. I reviewed these and they looked to be okay, except for some moderate to tender degeneration of his cervical spine. No acute fractures noted. No acute bleed. There was some bacteria noted on his urinalysis and since this was a cath urine, I would recommend treatment. If he passes the road test I think he can go home. Medical Records Attestation: I reviewed the patient's medical records. Lab Data Attestation: I reviewed the patient's lab results. Labs: Lab Results 08/11/23 08/11/23 Range/Units 22:40 22:50 WBC 6.17 (4.50-11.00) K/uL RBC 3.54 L (4.30-5.90) m/uL Hgb 11.5 L (13.5-17.5) gm/dL Hct 34.4 L (37.0-53.0) % MCV 97 (80-100) fL MCH 33 (26-34) pg MCHC 33 (32-36) gm/dL RDW Coeff of Patricia 13.1 (11.5-15.5) % Plt Count 192 (140-440) K/uL Neut % (Auto) 75.1 H (42.0-72.0) % Lymph % (Auto) 12.3 L (20-44) % [place] % (Auto) 9.6 (0.0-11.0) % Eos % (Auto) 1.8 (0.0-7.0) % Baso % (Auto) 0.2 (0.0-3.0) % Neut # (Auto) 4.60 (1.7-7.0) K/uL Lymph # (Auto) 0.80 L (0.90-2.90) K/uL [place] # (Auto) 0.60 (0.00-0.90) K/UL Eos # (Auto) 0.11 (0.00-0.50) K/uL Baso # (Auto) 0.01 (0.00-0.30) K/uL Abs Immat Gran (auto) 0.06 (0.00-0.30) K/uL Imm/Tot Granulo (auto) 1.0 % Sodium 134 L (135-149) mmol/L Potassium 3.9 (3.6-5.1) mmol/L Chloride 100 (96-114) mmol/L Carbon Dioxide 28 (20-32) mmol/L Anion Gap 6 L (7-15) mEq/L BUN 35 H (7-30) mg/dL Creatinine 0.9 (0.5-1.5) mg/dL Estimated Creat Clear 43.23 Estimated GFR 85 ml/min Glucose 166 H (60-115) mg/dL Calcium 9.4 (8.4-10.6) mg/dL Urine Color Yellow (Yellow) Urine Appearance Clear (Clear) Urine pH 6.0 (5.0-8.5) Ur Specific [place] 1.025 (1.000-1.030) Urine Protein Trace A (Negative) Urine Glucose (UA) Negative (Negative) Urine Ketones Negative (Negative) Urine Blood Negative (Negative) Urine Nitrite Negative (Negative) Urine Bilirubin Negative (Negative) Urine Urobilinogen 0.2 (0.2-1.0) Ur Leukocyte Esterase Negative (Negative) Urine RBC 0-2 (0-2) Urine WBC 2-5 (0-5) Ur Squamous Epith Cells Moderate A (None-Few) Amorphous Sediment Few A (None) Urine Bacteria Moderate A (None) SARS-CoV-2 (PCR) Negative SARS-CoV-2 (Negative) Influenza Type A (PCR) Negative PCR FLU A (Negative) Influenza Type B (PCR) Negative PCR FLU B (Negative) RSV (PCR) Negative PCR RSV (Negative) Imaging Data CT scan - head: Radiologist's impression: Patient: FREDY COLON Facility:[facility] Patient ID:?[id number] Site Patient ID:?[id number]. Site :?[id number] Study:?CT Spine C-SPINE W/O-08/12/2023 12:11:39 AM Ordering Physician:CORNELL Final Report: INDICATION: Fall trauma neck injury TECHNIQUE: CT cervical spine without i.v. contrast. Coronal and sagittal reformats were obtained. COMPARISON: None FINDINGS: Alignment: Unremarkable. Bone: Moderate chronic appearing compression deformities are seen along the superior endplates of C7 and T1. Disc: Moderate degenerative disc narrowing seen at C3-4 with severe disc narrowing seen at C4-5. The facet joints are unremarkable. Soft tissue: The prevertebral soft tissues are unremarkable in appearance. The visualized lung apices and mediastinum are unremarkable. IMPRESSION: 1. Moderate chronic appearing compression deformities are seen along the superior endplates of C7 and T1. Comparison with any prior outside imaging is recommended. If these cannot be obtained, assessment with MRI may be helpful. Dictated by Fran Rowe MD @ 08/12/2023 12:19:05 AM Please note that all CT scans at this facility use dose modulation, iterative reconstruction, and/or weight-based dosing when appropriate to reduce radiation dose to as low as reasonably achievable. Dictated by: Fran Rowe MD @ 08/12/2023 00:19:09 (Electronic Signature) Patient: FREDY COLON Facility:?[facility] Patient ID:?[id number] Site Patient ID:?[id number]. Site :?[id number] Study:?CT Head W/O-08/12/2023 12:09:35 AM Ordering Physician:CORNELL Final Report: INDICATION: Fall, hematoma, dementia, head injury, head TECHNIQUE: CT Head without i.v. contrast. Coronal and sagittal reformats were obtained. COMPARISON: None FINDINGS: CSF space: Unremarkable for age. Brain: No evidence of mass, acute infarction or hemorrhage is seen. No mass-effect or midline shift is seen. Mild diffuse cortical atrophy is noted. The brain parenchyma is otherwise normal in appearance with preservation of the barajas-white matter junction. Calvarium: The visualized paranasal sinuses are well aerated. The mastoid air cells are clear. The visualized orbits are grossly unremarkable. The patient is status post prior bilateral cataract removal. The calvarium is unremarkable in appearance with no fractures identified. IMPRESSION: 1. No evidence of acute infarction, intracranial hemorrhage, or mass-effect seen. Please note that all CT scans at this facility use dose modulation, iterative reconstruction, and/or weight-based dosing when appropriate to reduce radiation dose to as low as reasonably achievable. Dictated by: Fran Rowe MD @ 08/12/2023 00:16:19 (Electronic Signature) ECG Data Attestation: I personally reviewed and interpreted this ECG as follows: Prior ECG tracings: available for review Interpretation: Atrial fibrillation controlled rate, no acute ST wave changes Discharge Plan Discharge Prescriptions: No Action trazodone 50 mg tablet 25 mg PO HS metformin 500 mg tablet extended release 24 hr 2,000 mg PO DAILY metoprolol tartrate 50 mg Tablet 50 mg PO BID Qty: 60 0RF Eliquis 5 mg Tablet 5 mg PO BID Qty: 60 0RF sodium chloride 1,000 mg tablet,soluble 1,000 mg PO BID PRN (Reason: electrolyte replenishment) Qty: 60 0RF sennosides [senna] 8.6 mg tablet 8.6 mg PO QAM clotrimazole [Athlete's Foot (clotrimazole)] 1 % cream topical 3XD metoprolol tartrate 25 mg tablet PO Follow Up/Referrals: Jairo Richardson MD [Primary Care Provider] -
[2023-08-12] MEDS: cephALEXin 500 MG CAPSULE PO (01:15)
--- NOTE | 2023-08-12 01:31 | ED.NURSE ---
Patient report given to Nurse Matamoros at [facility].
== END 2023-08-12 01:33 | disposition home or self-care (01) ==
PROVIDERS: Emergency Provider Family Medicine; PCP Family Medicine
DX: N39.0 Urinary tract infection, site not specified (principal); Z91.81 History of falling
CPT/HCPCS: 36415; 70450; 72125; 80048; 81001; 85025; 87086; 87631; 93005; 99284; 99285; A9270

== ENCOUNTER 2023-09-03 09:14 | Outpatient (REF) | payer MEDICARE, BC, SELFPAY ==
[2023-09-03 10:08] LABS: Appearance Urine Cloudy (Clear); Bilirubin Urine 1+ (Negative); Blood Urine Negative (Negative); Color Urine Orange (Yellow); Glucose Urine Negative (Negative); Ketones Urine Trace (Negative); Leukocyte Esterase Urine Negative (Negative); Nitrite Urine Negative (Negative); Protein Urine 1+ (Negative); Specific Gravity Urine >= 1.030 (1.000-1.030); Urobilinogen Urine 0.2 (0.2-1.0); pH Urine 5.5 (5.0-8.5)
[2023-09-03 10:29] LABS: RBC Urine 0-2 (0-2); WBC Urine 0-2 (0-5)
[2023-09-03 10:30] LABS: Amorphous Sediment Urine Many; Calcium Carbonate Crystals Ur Few
== END 2023-09-03 09:15 | disposition home or self-care (01) ==
LOC: NPINS 09:14
PROVIDERS: PCP Family Medicine; Visit Provider Nurse Practitioner Gerontology
DX: R41.82 Altered mental status, unspecified (principal); R53.83 Other fatigue
CPT/HCPCS: 81001; 81003; 87086

== ENCOUNTER 2023-10-15 11:28 | Outpatient (REF) | payer MEDICARE, BC, SELFPAY ==
[2023-10-15 19:31] LABS: Basophils Absolute Auto 0.02 K/uL (0.00-0.30); Basophils Percent Auto 0.3 % (0.0-3.0); Eosinophils Absolute Auto 0.17 K/uL (0.00-0.50); Eosinophils Percent Auto 2.8 % (0.0-7.0); Hematocrit 35.3 % (37.0-53.0); Hemoglobin* 11.4 gm/dL (13.5-17.5); Lymphocytes Percent Auto 14.6 % (20-44); Mean Corpuscular HGB Conc 32 gm/dL (32-36); Mean Corpuscular Hemoglobin 33 pg (26-34); Mean Corpuscular Volume 103 fL (80-100); Neutrophils Percent Auto 75.3 % (42.0-72.0); Platelet Count* 263 K/uL (140-440); RDW Coefficient of Variation % 14.7 % (11.5-15.5); Red Blood Count 3.44 m/uL (4.30-5.90); White Blood Count* 6.11 K/uL (4.50-11.00)
[2023-10-15 19:39] LABS: Albumin* 4.3 g/dL (3.3-5.0); Chloride* 100 mmol/L (96-114); Sodium* 137 mmol/L (135-149)
[2023-10-15 19:40] LABS: Potassium* 4.2 mmol/L (3.6-5.1)
[2023-10-15 19:42] LABS: Alanine Aminotransferase* 13 U/L (4-50); Alkaline Phosphatase* 100 U/L (40-150); Anion Gap 13 mEq/L (7-15); Aspartate Amino Transferase* 23 U/L (12-35); Bilirubin Total* 0.4 mg/dL (0.1-1.5); Blood Urea Nitrogen* 22 mg/dL (7-30); Carbon Dioxide* 24 mmol/L (20-32); Creatinine* 0.7 mg/dL (0.5-1.5); Estimated Glomerular Filt Rate 91 ml/min; Glucose* 218 mg/dL (60-115); Total Protein* 6.8 g/dL (6.0-8.3)
[2023-10-15 19:43] LABS: Calcium* 9.5 mg/dL (8.4-10.6)
[2023-10-15 19:54] LABS: Slide Review Reflex No
[2023-10-15 20:32] LABS: Hemoglobin A1C* 8.1 % (0-5.6)
== END 2023-10-15 11:29 | disposition home or self-care (01) ==
LOC: NPINS 11:28
PROVIDERS: PCP Family Medicine; Visit Provider Family Medicine
DX: E11.9 Type 2 diabetes mellitus without complications (principal); E53.1 Pyridoxine deficiency
CPT/HCPCS: 80053; 83036; 85025

== ENCOUNTER 2024-01-14 10:31 | Outpatient (REF) | payer MEDICARE, BC, SELFPAY ==
[2024-01-14 11:07] LABS: Hemoglobin A1C* 8.8 % (0-5.6)
== END 2024-01-14 10:32 | disposition home or self-care (01) ==
LOC: NPINS 10:31
PROVIDERS: PCP Family Medicine; Visit Provider Family Medicine
DX: E11.9 Type 2 diabetes mellitus without complications (principal)
CPT/HCPCS: 83036

== ENCOUNTER 2024-03-28 06:20 | Outpatient (CLI) | payer MEDICARE, BC, SELFPAY | END 2024-03-28 06:21 | disposition home or self-care (01) | LOC: AMB 03-30 23:54 | PROVIDERS: PCP Family Medicine; Visit Provider Student in an Organized Health Care Education/Training Program | DX: S09.90XA Unspecified injury of head, initial encounter (principal); W18.30XA Fall on same level, unspecified, initial encounter; Y92.039 Unspecified place in apartment as the place of occurrence of the external cause | CPT/HCPCS: A0425; A0429 ==

== ENCOUNTER 2024-03-28 06:40 | Emergency (ER) | payer MEDICARE, BC, SELFPAY ==
--- NOTE | 2024-03-28 06:45 | CRLHL7_ITS ---
For Patients: As a result of the Century Cures Act, medical imaging exams and procedure reports are released immediately into your electronic medical record. You may view this report before your referring provider. If you have questions, please contact your health care provider. INDICATION: Trauma. TECHNIQUE: CT of the cervical spine without contrast. COMPARISON: 08/11/2023. FINDINGS: Vertebral alignment: Straightening of the cervical lordosis. Stepwise anterolisthesis at C5-T1, unchanged. Vertebrae: Similar mild superior endplate compression deformities C7 and T1. Vertebral body heights are otherwise maintained. Osseous demineralization without displaced fracture identified. No suspicious osseous lesion. Multilevel degenerative disc disease and facet arthropathy throughout the cervical spine. Extraspinal findings: Prevertebral and posterior paraspinal soft tissues are unremarkable. Posterior fossa is unremarkable. Atherosclerotic arterial calcifications. IMPRESSION: No acute displaced cervical spine fracture identified. Please note that all CT scans at this facility use dose modulation, iterative reconstruction, and/or weight-based dosing when appropriate to reduce radiation dose to as low as reasonably achievable. Dictated by Cierra Lee MD @ 03/28/2024 7:57:46 AM (Electronically Signed)
--- NOTE | 2024-03-28 06:45 | CRLHL7_ITS ---
For Patients: As a result of the Cures Act, medical imaging exams and procedure reports are released immediately into your electronic medical record. You may view this report before your referring provider. If you have questions, please contact your health care provider. INDICATION: Fall TECHNIQUE: Three views of the right 1st toe FINDINGS/IMPRESSION: Normal alignment no acute fracture seen. Mild soft tissue edema. Slight soft tissue density along the dorso distal soft tissues. Dictated by Henrietta Sorto MD @ 03/28/2024 8:07:06 AM (Electronically Signed)
--- NOTE | 2024-03-28 06:45 | CRLHL7_ITS ---
For Patients: As a result of the Century Cures Act, medical imaging exams and procedure reports are released immediately into your electronic medical record. You may view this report before your referring provider. If you have questions, please contact your health care provider. Indication: Fall Technique: Noncontrast head CT Comparison: Head CT 03/15/2023 Findings: Generalized parenchymal volume loss. Periventricular hypo lucencies likely reflecting chronic small vessel ischemic change. Axial noncontrast images through the brain parenchyma demonstrates no acute intracranial hemorrhage or mass. No midline shift. No abnormal extra-axial air fluid collections. Posterior scalp contusion/laceration. Impression: 1. No acute intracranial hemorrhage or mass. Posterior scalp contusion laceration. Please note that all CT scans at this facility use dose modulation, iterative reconstruction, and/or weight-based dosing when appropriate to reduce radiation dose to as low as reasonably achievable. Dictated by Henrietta Sorto MD @ 03/28/2024 8:05:30 AM (Electronically Signed)
--- NOTE | 2024-03-28 06:46 | ED_ITS ---
HPI - General Adult General Date Seen: 03/28/24 <Noam P Nelson - Last Filed: 03/28/24 07:59> Chief complaint: Fall/Minor Trauma <Noam Damon - Last Filed: 03/28/24 07:59> Stated complaint: fall, head lac <Noam Damon - Last Filed: 03/28/24 07:59> Time Seen by Provider: 03/28/24 06:41 <Noam Wrightram - Last Filed: 03/28/24 07:59> Source: patient and EMS <Noam Damon DO - Last Filed: 03/28/24 07:59> Mode of arrival: EMS <Noam Elisa Nelson - Last Filed: 03/28/24 07:59> Limitations: no limitations <Noam Damon - Last Filed: 03/28/24 07:59> History of Present Illness HPI narrative: Patient is an 83-year-old male presenting to the emergency department for a fall. She is brought in by ambulance. He comes from [facility] and tripped will coming from the bathroom. Multiple patient is able answer all questions appropriately. No associated lightheadedness or dizziness according to the patient. Does state he has some mild pain in his right great toe. Also has tenderness to the back of his head where he hit the ground. Does have a laceration to the back of the head. EMS wrapped up the area and states bleeding has been under control. No other concerns noted. Patient denies vision changes to the skin region which is finger measures of breath, abdominal pain. He is on Eliquis for a AFib <Noam Damon - Last Filed: 03/28/24 07:59> Related Data Home medications: Home Medications ?Medication ?Instructions ?Recorded ?Confirmed metformin 500 mg tablet,extended 2,000 mg PO DAILY 12/01/22 03/28/24 release 24 hr trazodone 50 mg tablet 25 mg PO HS 12/01/22 04/05/23 clotrimazole 1 % topical cream applic topical 3XD 02/20/23 04/05/23 (Athlete's Foot (clotrimazole)) metoprolol tartrate 25 mg tablet mg PO BID 02/20/23 04/05/23 sennosides 8.6 mg tablet (senna) 8.6 mg PO QAM constipation 02/20/23 03/28/24 mirtazapine 15 mg tablet 15 mg PO QPM 03/28/24 03/28/24 nystatin 100,000 unit/gram topical topical BID 03/28/24 powder (Nystop) Previous Rx's ?Medication ?Instructions ?Recorded apixaban 5 mg tablet (Eliquis) 5 mg PO BID #60 tabs 12/04/22 metoprolol tartrate 50 mg tablet 50 mg PO BID #60 tabs 12/04/22 sodium chloride 1,000 mg soluble 1,000 mg PO BID PRN electrolyte 12/05/22 tablet replenishment #60 tabs <Noam Damon DO - Last Filed: 03/28/24 07:59> Allergies/adverse reactions: Allergies Allergy/AdvReac Type Severity Reaction Status Date / Time buspirone Allergy Mild constipatio Verified 04/05/23 13:44 n gluten Allergy Mild Verified 04/05/23 13:44 metformin Allergy Verified 04/05/23 13:44 dust Allergy Unknown Uncoded 04/05/23 13:44 <Noam Damon DO - Last Filed: 03/28/24 07:59> Review of Systems Status of ROS: Reports: 10 or more systems reviewed and unremarkable except as noted in History and below <Noam Damon DO - Last Filed: 03/28/24 07:59> [facility] Medical History: Medical History Fall ?W19.XXXA - Unspecified fall, initial encounter (ICD-10) Conjunctivitis ?H10.9 - Unspecified conjunctivitis (ICD-10) Type 2 diabetes mellitus ?E11.9 - Type 2 diabetes mellitus without complications (ICD-10) <Noam Damon DO - Last Filed: 03/28/24 07:59> Social History: Social History What is your current living situation?: I presently have a place to live Problems where you live: no known problems Problems where you live details: none. In the past 12 months, utilities in danger of being shut off: no In past 12 months, lack of transportation kept you from medical appts, meetings, work, or getting things needed for daily living: no In the past 12 mos, have been you worried that your food would run out before you had money to buy more?: never true In the past 12 mos, the food you bought just didn't last and you didn't have money to buy more?: never true Highest level of school completed/degree received: Doctoral degree Smoking Status: Never smoker Do you use any of these nicotine containing products: None Second hand tobacco smoke exposure: No How often do you have a drink containing alcohol: 2-3 times a week Alcohol type: wine How many standard drinks containing alcohol do you have on a typical day: 1 or 2 How often do you have six or more drinks on one occasion: Never AUDIT-C Alcohol total score: 3 Non-prescribed substance use: denies use Caffeine: Yes (coffee 1-3x per week) How often does anyone, including family, friends and others, physically hurt you : never How often does anyone, including family, friends and others, insult or talk down to you: never How often does anyone, including family, friends and others, threaten you with harm: never How often does anyone, including family, friends and others, scream or curse at you: never service: No <Noam Damon DO - Last Filed: 03/28/24 07:59> Exam Narrative: Exam Narrative: Const: Well-nourished, Well-developed, in mild distress Eyes: PERRL, no conjunctival injection, and symmetrical lids HENT: Atraumatic external nose and ears. Moist mucous membranes. Laceration to back of head. Neck: Symmetric, trachea midline, No thyromegaly. CVS: RRR, No murmurs or gallops. Peripheral pulses 2+ and equal in all extrem ities RESP: Unlabored respiratory effort. Clear to auscultation bilaterally. GI: Nontender/Nondistended, No rebound or guarding. MSK:Extremities w/o deformity, Normal Active ROM, mild tenderness to right great toe Skin: Warm, Dry. No rashes or lesions. Neuro: Normal Muscle tone, No focal neurological deficits. Psych: Awake, Alert, & Oriented x3. Appropriate mood and affect. <Noam Damon DO - Last Filed: 03/28/24 07:59> Const: Vital Signs, click to edit/add: Vital Signs - 24 hr 03/28/24 06:47 03/28/24 07:39 Temperature 97.7 F Pulse Rate [Pulse Oximeter] 75 81 Respiratory Rate 16 18 Blood Pressure [Ri ght Upper Arm] 140/101 H 153/86 H Pulse Oximetry 99 95 Oxygen Delivery Me thod Room Air Room Air <Noam Damon DO - Last Filed: 03/28/24 07:59> Vital Signs, click to edit/add: Vital Signs - 24 hr 03/28/24 06:47 03/28/24 07:39 Temperature 97.7 F Pulse Rate [Pulse Oximeter] 75 81 Respiratory Rate 16 18 Blood Pressure [Ri ght Upper Arm] 140/101 H 153/86 H Pulse Oximetry 99 95 Oxygen Delivery Me thod Room Air Room Air <Solitario Calderón MD - Last Filed: 03/28/24 08:25> Course Course ED Course: Patient signed out to Dr. Calderón at shift change-8:00 a.m.. At this point patient has been evaluated for an unwitnessed fall. He had a posterior scalp laceration that was closed per Dr. Damon. He has had imaging including CT head, x-ray of his foot which are still pending. He has already had CT scan of his C-spine which is red and normal. Dr. Calderón will follow-up on the outstanding results of the head CT and toe x-ray to make sure there is no significant findings. CT head Impression: 1. No acute intracranial hemorrhage or mass. Posterior scalp contusion laceration. XR toe FINDINGS/IMPRESSION: Normal alignment no acute fracture seen. Mild soft tissue edema. Slight soft tissue density along the dorso distal soft tissues. Tetanus is up-to-date. 2021. Patient can be discharged as per Dr. Damon start instructions. <Solitario Calderón MD - Last Filed: 03/28/24 08:25> Vital Signs Vital signs: Initial Vital Signs Temperature 97.7 F 03/28/24 06:47 Temperature Source Temporal Artery Scan 03/28/24 06:47 Pulse Rate 75 03/28/24 06:47 Respiratory Rate 16 03/28/24 06:47 Blood Pressure 140/101 H 03/28/24 06:47 Blood Pressure Mean 114 H 03/28/24 06:47 Blood Pressure Position Supine 03/28/24 06:47 Pulse Oximetry 99 03/28/24 06:47 Oxygen Delivery Method Room Air 03/28/24 06:47 Vital Signs Temperature 97.7 F 03/28/24 06:47 Pulse Rate 75 03/28/24 06:47 Respiratory Rate 16 03/28/24 06:47 Blood Pressure 140/101 H 03/28/24 06:47 Pulse Oximetry 99 03/28/24 06:47 Oxygen Delivery Method Room Air 03/28/24 06:47 Temperature 97.7 F 03/28/24 06:47 Pulse Rate 81 03/28/24 07:39 Respiratory Rate 18 03/28/24 07:39 Blood Pressure 153/86 H 03/28/24 07:39 Pulse Oximetry 95 03/28/24 07:39 Oxygen Delivery Method Room Air 03/28/24 07:39 <Noam Damon DO - Last Filed: 03/28/24 07:59> Initial Vital Signs Temperature 97.7 F 03/28/24 06:47 Temperature Source Temporal Artery Scan 03/28/24 06:47 Pulse Rate 75 03/28/24 06:47 Respiratory Rate 16 03/28/24 06:47 Blood Pressure 140/101 H 03/28/24 06:47 Blood Pressure Mean 114 H 03/28/24 06:47 Blood Pressure Position Supine 03/28/24 06:47 Pulse Oximetry 99 03/28/24 06:47 Oxygen Delivery Method Room Air 03/28/24 06:47 Vital Signs Temperature 97.7 F 03/28/24 06:47 Pulse Rate 75 03/28/24 06:47 Respiratory Rate 16 03/28/24 06:47 Blood Pressure 140/101 H 03/28/24 06:47 Pulse Oximetry 99 03/28/24 06:47 Oxygen Delivery Method Room Air 03/28/24 06:47 Temperature 97.7 F 03/28/24 06:47 Pulse Rate 81 03/28/24 07:39 Respiratory Rate 18 03/28/24 07:39 Blood Pressure 153/86 H 03/28/24 07:39 Pulse Oximetry 95 03/28/24 07:39 Oxygen Delivery Method Room Air 03/28/24 07:39 <Solitario Calderón MD - Last Filed: 03/28/24 08:25> Medications Administered Medications: Discontinued Medications Generic Name Dose Route Start Last Admin Trade Name Freq PRN Reason Stop Dose Admin Lidocaine/Epinephrine 20 ml 03/28/24 07:03 03/28/24 07:37 Lidocaine 1%-Epi 1:100,000 INFILTRATI 03/28/24 07:04 20 ml ONCE ONE Administration <Noam Damon DO - Last Filed: 03/28/24 07:59> Discontinued Medications Generic Name Dose Route Start Last Admin Trade Name Freq PRN Reason Stop Dose Admin Lidocaine/Epinephrine 20 ml 03/28/24 07:03 03/28/24 07:37 Lidocaine 1%-Epi 1:100,000 INFILTRATI 03/28/24 07:04 20 ml ONCE ONE Administration <Solitario Calderón MD - Last Filed: 03/28/24 08:25> Medical Decision Making MDM Narrative Medical decision making narrative: Patient is an 83-year-old male presenting to the emergency department after a fall. Based on description is sounds like the fall was mechanical in nature. No associated lightheadedness or dizziness. He appears to be as mental baseline at this time. He is answering questions appropriately. Does have laceration to the back of his head and some mild pain to his left toe. No tenderness noted to rest of body. CT scan of the chest/abdomen/pelvis is not necessary at this time. Will do CT scan of head and cervical spine. Most do x- ray of right great toe. Further x-rays not necessary. <Noam Damon DO - Last Filed: 03/28/24 07:59> Imaging Data CT scan cervical spine: Attestation: I have reviewed the pertinent imaging results. <Noam Damon DO - Last Filed: 03/28/24 07:59> Radiologist's impression: No acute displaced cervical spine fracture identified. Please note that all CT scans at this facility use dose modulation, iterative reconstruction, and/or weight-based dosing when appropriate to reduce radiation dose to as low as reasonably achievable. Dictated by Cierra Lee MD @ 03/28/2024 7:57:46 AM <Noam Damon DO - Last Filed: 03/28/24 07:59> Discharge Plan Discharge Clinical Impression: Closed head injury Qualifiers: Encounter type: initial encounter Qualified Code(s): S09.90XA - Unspecified injury of head, initial encounter Laceration of scalp Qualifiers: Encounter type: initial encounter Qualified Code(s): S01.01XA - Laceration without foreign body of scalp, initial encounter <Noam Damon DO - Last Filed: 03/28/24 07:59> Patient Disposition: Home, Self-Care <Noam Damon DO - Last Filed: 03/28/24 07:59> Condition: Stable <Noam Damon DO - Last Filed: 03/28/24 07:59> Instructions: Staple Care (ED) <Noam Damon DO - Last Filed: 03/28/24 07:59> Additional Instructions: Follow-up with your primary care provider or urgent care in the next 7 days to have the 5 sutures removed. For next 6 months, once sutures are removed, whenever you go outside put a dab of sunscreen over the laceration site to improve scar appearance. Topical antibiotics are not necessary at this time. Patient can shower but do not submerge the laceration until zuly are removed. Return to emergency department for any new or worsening symptoms. <Noam Damon DO - Last Filed: 03/28/24 07:59> Prescriptions: No Action trazodone 50 mg tablet 25 mg PO HS metformin 500 mg tablet extended release 24 hr 2,000 mg PO DAILY metoprolol tartrate 50 mg Tablet 50 mg PO BID Qty: 60 0RF Eliquis 5 mg Tablet 5 mg PO BID Qty: 60 0RF sodium chloride 1,000 mg tablet,soluble 1,000 mg PO BID PRN (Reason: electrolyte replenishment) Qty: 60 0RF sennosides [senna] 8.6 mg tablet 8.6 mg PO QAM clotrimazole [Athlete's Foot (clotrimazole)] 1 % cream topical 3XD metoprolol tartrate 25 mg tablet PO BID mirtazapine 15 mg tablet 15 mg PO QPM nystatin [Nystop] 100,000 unit/gram powder topical BID <Noam Damon DO - Last Filed: 03/28/24 07:59> Follow Up/Referrals: Jairo Richardson MD [Primary Care Provider] - <Noam Damon DO - Last Filed: 03/28/24 07:59> Stand Alone Forms: [facility] Info Instructions <Noam Damon, - Last Filed: 03/28/24 07:59> Procedures Laceration Scalp: Name of person performing procedure: Noam Damon <Noam Damon DO - Last Filed: 03/28/24 07:59> Site: scalp <Noam Damon - Last Filed: 03/28/24 07:59> Size (cm): 5 <Noam Damon - Last Filed: 03/28/24 07:59> Description: linear and clean <Noam Damon, - Last Filed: 03/28/24 07:59> Depth: simple, single layer <Noam Damon - Last Filed: 03/28/24 07:59> Local Anesthetic: lidocaine 1% <Noam Damon - Last Filed: 03/28/24 07:59> Amount of anesthesia used (mL): 5 <Noam Damon - Last Filed: 03/28/24 07:59> Pre-repair: wound explored, irrigated extensively and deep structures intact <Noam Damon DO - Last Filed: 03/28/24 07:59> Skin layer closed with: other (5 zuly) <Noam Damon DO - Last Filed: 03/28/24 07:59> Size (cm): other <Noam Damon DO - Last Filed: 03/28/24 07:59>
[2024-03-28 06:47] VITALS: BP 140/101; PULSE 75; RESP 16; TEMP 36.5; O2SAT 99
[2024-03-28] MEDS: LIDOCAINE 1%-EPI 1:100,000 20 ML INFILTRATI (07:37)
[2024-03-28 07:39] VITALS: BP 153/86; PULSE 81; RESP 18; O2SAT 95
== END 2024-03-28 09:32 | disposition home or self-care (01) ==
PROVIDERS: Emergency Provider Student in an Organized Health Care Education/Training Program; PCP Family Medicine
DX: S01.01XA Laceration without foreign body of scalp, initial encounter (principal); W01.10XA Fall on same level from slipping, tripping and stumbling with subsequent striking against unspecified object, initial encounter; Y92.002 Bathroom of unspecified non-institutional (private) residence as the place of occurrence of the external cause
CPT/HCPCS: 12002; 70450; 72125; 73660; 99283; 99284